=== PATIENT | female | born 2000 | race Caucasian/White ===

== ENCOUNTER 2020-07-27 10:30 | Emergency (ER) | payer SELFPAY ==
--- NOTE | 2020-07-27 10:33 | XR_ITS ---
WS: [id number] Exam: XR wrist LT min 3V* [id number] Date/Time of Exam: 07/27/2020 10:33 AM Reason For Exam: injury/pain There are no fractures, soft tissue swelling, or unusual calcifications. The wrist shows normal bony alignment. There is no irregularity of the bony architecture. XR/XR wrist LT min 3V* [id number] IMPRESSION: Negative left wrist.
--- NOTE | 2020-07-27 10:33 | W.ED.UPPEXIN ---
HPI - Extremity Injury (Upper) General: Chief Complaint: Extremity Injury, Upper Stated Complaint: L WRIST INJURY Time Seen by Provider: 07/27/20 10:33 Source: patient Mode of arrival: ambulatory Limitations: no limitations History of Present Illness: HPI narrative: Patient is a 19-year-old female who presents to ED today for evaluation of her left wrist pain. Patient tells me she accidentally struck her left wrist on the counter 2 days ago and has had pain since. MD complaint: injury to: left and wrist Onset (ago): day(s) Other Extremity Injury: Left: wrist Other injuries: none Place: home Relieving factors: immobilization Exacerbating factors: movement of extremity Context: direct blow Associated symptoms: Reports no associated symptoms Review of Systems Musc: Reports: joint pain (L wrist); Denies: extremity pain, extremity swelling or joint swelling Skin/Breast: Denies: changes in skin color Neuro: Denies: numbness in extremities or sensory changes Physical Exam Const: COMMON NORMALS: no acute distress, no limitations and alert GENERAL APPEARANCE: cooperative Extremity: GENERAL: Yes normal exam except as noted LEFT UPPER EXTREMITY: Yes wrist Left wrist: Yes inspection (normal), Yes palpation (TTP ulnar wrist ), Yes ROM (normal) and Yes neurovascular exam (normal) Neuro: COMMON NORMALS: moves all extremities, no focal motor deficits and no sensory deficits noted SENSORIUM/ORIENTATION: Yes alert Skin: COMMON NORMALS: no rashes or lesions noted GENERAL SKIN EXAM: no rashes or lesions noted TRAUMA: no lacerations or abrasions Course Vital Signs: Vital signs: Vital Signs Temperature 97.7 F 07/27/20 10:47 Pulse Rate 77 07/27/20 10:47 Respiratory Rate 16 07/27/20 10:47 Blood Pressure 128/79 07/27/20 10:47 Pulse Oximetry 97 07/27/20 10:47 MDM - Extremity Injury (Upper) Imaging Data^: XR L wrist: Radiologist's impression: [address] [address] XRay Report Signed Patient: Whitney COLON #: [id number] : 2000Acct#:[id number] Age/Sex: 19 / FADM Date: 07/27/20 Loc: ERRoom/Bed: Attending Dr: Ordering Provider/Ordering MD: Casandra Barnes Date of Service: 07/27/20 Procedure(s): XR wrist LT min 3V* [id number] Accession Number(s): [id number] Report Number: [id number] WS: [id number] Exam: XR wrist LT min 3V* [id number] Date/Time of Exam: 07/27/2020 10:33 AM Reason For Exam: injury/pain There are no fractures, soft tissue swelling, or unusual calcifications. The wrist shows normal bony alignment. There is no irregularity of the bony architecture. XR/XR wrist LT min 3V* [id number] IMPRESSION: Negative left wrist. Dictated By:Jim Virk DO Signed By:Nagi Ann Date/Time:07/27/20 1114 DD/ 1113 Discharge Plan Discharge Patient Disposition: Home Clinical Impression: Contusion of left wrist Qualifiers: Encounter type: initial encounter Qualified Code(s): S60.212A - Contusion of left wrist, initial encounter Condition: Stable Discharge Orders: Discharge ED (Routine); Ordered 07/27/20 Ordered By: Casandra Barnes Coding Level of Care Code ED Car Wash Attendant for Chg Fwd Exam Expanded Problem Focused
[2020-07-27 10:47] VITALS: BP 128/79; PULSE 77; RESP 16; TEMP 36.5; O2SAT 97; BMI 16.5
== END 2020-07-27 11:44 | disposition home or self-care (01) ==
PROVIDERS: Emergency Provider Physician Assistant
DX: S60.212A Contusion of left wrist, initial encounter (principal); W22.09XA Striking against other stationary object, initial encounter
CPT/HCPCS: 73110; 99283

== ENCOUNTER 2021-05-07 12:31 | Emergency (ER) | payer OTHER, MEDICAID, SELFPAY ==
--- NOTE | 2021-05-07 12:33 | XR_ITS ---
WS: [id number] WRIST RIGHT TECHNIQUE: 3 views of the right wrist CLINICAL INFORMATION: R wrist injury COMPARISON: None. FINDINGS: Normal radiocarpal joint. Scaphoid is normal in appearance. No evidence of radiocarpal dislocation. D istal radius and ulna are normal in appearance. Mild soft tissue edema dorsal wrist. XR/XR wrist RT min 3V* [id number] IMPRESSION: Mild soft tissue edema dorsal wrist. No acute fractures.
--- NOTE | 2021-05-07 13:17 | W.ED.UPPEXIN ---
HPI - Extremity Injury (Upper) General: Chief Complaint: Extremity Injury, Upper Stated Complaint: right wrist injury Time Seen by Provider: 05/07/21 12:51 Source: patient Mode of arrival: ambulatory Limitations: no limitations History of Present Illness: HPI narrative: 20-year-old female presents to the ER today for right wrist pain. Patient reports on [employer] she slipped on chicken grease and fell, landing on her right wrist. Patient reports since then she has had bruising, swelling, pain in the right wrist. She has been wearing a brace and lifting less than 1 pound at work. Patient was sent by her work for evaluation. MD complaint: injury to: right and wrist Onset (ago): week(s) Other Extremity Injury: Right: wrist Other injuries: none Place: work Severity: moderate Severity scale (1-10): 4 Context: fall Review of Systems General: Reports: 10 or more systems reviewed and unremarkable except in HPI and below PFSH ED PFSH: Medical History Rib pain on left side Social History Smoking and tobacco status: never smoked Physical Exam Const: COMMON NORMALS: no acute distress, average body habitus and patient oriented x3 GENERAL APPEARANCE: cooperative and comfortable Neck/C-Spine: COMMON NORMALS: full ROM and no lymphadenopathy Resp: COMMON NORMALS: normal respiratory effort EFFORT & INSPECTION: Yes able to speak in complete sentences Cardio: COMMON NORMALS: regular rate and regular rhythm RATE: regular rate RHYTHM: regular rhythm Back/Pelvis: COMMON NORMALS: thoraco-lumbar ROM normal Extremity: RIGHT UPPER EXTREMITY: Yes wrist Right wrist: Yes inspection (no swelling or bruising noted; no deformity), Yes palpation (TTP over distal radius), Yes ROM (normal ROM but with some pain) and Yes neurovascular exam (normal) Neuro: COMMON NORMALS: patient oriented x3, moves all extremities and gait normal Psych: COMMON NORMALS: mental status grossly normal, Normal thought process present and cooperative THOUGHT PROCESS: Normal thought process present Skin: COMMON NORMALS: no rashes or lesions noted GENERAL SKIN EXAM: no rashes or lesions noted Course ED course: Patient presents to the ER today for right wrist pain after fall at work. We will get imaging at this time. MDM - Extremity Injury (Upper) MDM Narrative: Medical decision making narrative: 20-year-old female presents to the ER today for right wrist pain that started after a fall at work on the . Patient reports swelling and bruising of the wrist. She is to wear a wrist brace which does seem to help some. Her work sent her to be evaluated given this happened at work. Imaging in the ER today is negative for acute fracture. There appears to be some mild soft tissue swelling consistent with a sprain or contusion. Discussed conservative treatment at this time including wearing the brace, rest, ibuprofen, ice. If pain persist beyond 10 to 14 days, follow-up with work comp doctor. Patient verbalized understanding and is in agreement with the treatment plan. Imaging Data^: Xray Ortho: Radiologist's impression: [facility] [address] XRay Report Signed Patient: JV COLON Unit #: [id number] : 2000 Age/Sex: 20 / F ADM Date: 05/07/21 Loc: ER Room/Bed: Attending Dr: Ordering Provider/Ordering MD: Lin Payne Date of Service: 05/07/21 Procedure(s): XR wrist RT min 3V* [id number] Accession Number(s): [id number] Report Number: [id number] WS: [id number] WRIST RIGHT TECHNIQUE: 3 views of the right wrist CLINICAL INFORMATION: R wrist injury COMPARISON: None. FINDINGS: Normal radiocarpal joint. Scaphoid is normal in appearance. No evidence of radiocarpal dislocation. Distal radius and ulna are normal in appearance. Mild soft tissue edema dorsal wrist. XR/XR wrist RT min 3V* [id number] IMPRESSION: Mild soft tissue edema dorsal wrist. No acute fractures. Dictated By: Reginaldo Yeh MD Signed By: Reginaldo Yeh MD Signed Date/Time: 05/07/21 1304 DD/ 1302 Critical Care Time Critical Care Time: Critical Care Time: No Discharge Plan Discharge Patient Disposition: Home Clinical Impression: Contusion of right wrist, initial encounter Condition: Stable Prescriptions: No Action meloxicam 7.5 mg tablet 7.5 mg PO DAILY Qty: 30 RF: 0 tramadol 50 mg tablet 50 mg PO Q8H PRN (Reason: left rib pain) Qty: 20 RF: 0 Discharge Orders: Discharge ED (Routine); Ordered 05/07/21 Ordered By: Lin Payne Discharge Diet: Usual diet Discharge Activity: Limit activity as instructed Patient Instructions: Opioid Safety Activity Restrictions/Additional Instructions: Continue wearing brace. Take ibuprofen for pain and swelling. Rest as discussed. Work restrictions as discussed. Follow-up with work comp doctor in 10 to 14 days if no improvement. Return to the ER with any new or worsening symptoms. Coding Level of Care Code ED Technology Professional for Chg Fwd Exam Comprehensive
[2021-05-07 13:51] VITALS: BMI 20.1
== END 2021-05-07 13:55 | disposition home or self-care (01) ==
PROVIDERS: Emergency Provider Physician Assistant
DX: S60.211A Contusion of right wrist, initial encounter (principal); W01.0XXA Fall on same level from slipping, tripping and stumbling without subsequent striking against object, initial encounter
CPT/HCPCS: 73110; 99282

== ENCOUNTER 2022-04-14 09:50 | Emergency (ER) | payer MEDICAID, SELFPAY ==
[2022-04-14 10:00] VITALS: BP 110/59; PULSE 74; RESP 13; TEMP 36.9; O2SAT 97; BMI 16.2
--- NOTE | 2022-04-14 10:53 | ED_ITS ---
HPI - URI/Sore Throat General: Chief Complaint: General Medical Stated Complaint: congestion Time Seen by Provider: 04/14/22 10:01 Source: patient Mode of arrival: ambulatory Limitations: no limitations History of Present Illness: Patient is a 21-year-old female presents to ED today with a complaint of sinus pain/pressure, nasal congestion, sore throat, and cough over the past 4 days. No fevers. No sick contacts. Patient has been treating with OTC cough and cold medications. She is not having any chest pain, shortness of breath, difficulty breathing. No hemoptysis. She is eating and drinking normally. No neck pain/stiffness. MD elicited complaint: cough, sore throat, nasal congestion and sinus pain Onset (ago): day(s) (4 days ago) Consistency: constant Severity: mild Able to tolerate fluids by mouth: Yes Associated symptoms: Reports nasal congestion and sinus pain; Deny abdominal pain, chills, chest pain, diarrhea, ear or mastoid pain, fever(s), headache(s) or vomiting Treatments prior to arrival: cold medicine Review of Systems Const: Denies: fever(s), chills, body aches, fatigue or malaise Eyes: Denies: change in vision, blurry vision or photophobia ENMT: Reports: throat pain, odynophagia, nasal discharge, nasal congestion and sinus pain; Denies: oral sores or ear or mastoid pain Card: Denies: chest pain Resp: Reports: non-productive cough; Denies: dyspnea, wheezing or hemoptysis GI: Denies: abdominal pain, vomiting or diarrhea Musc: Denies: neck pain, back pain, extremity pain or joint pain Skin/Breast: Denies: rash Neuro: Denies: headache(s) [facility] ED PFSH: Medical History Rib pain on left side Social History Smoking and tobacco status: never smoked Physical Exam Const: COMMON NORMALS: no acute distress, average body habitus, patient oriented x3, no limitations, healthy appearing, alert and well nourished GENERAL APPEARANCE: cooperative ORIENTATION/CONSCIOUSNESS: Yes awake, Yes oriented to person, Yes oriented to place and Yes oriented to time HENMT: COMMON NORMALS: normocephalic, atraumatic, hearing grossly normal bilaterally, external ears normal, EAC's normal, TM's normal bilaterally and Normal external nose present HEAD & SCALP: normal to inspection, normocephalic and atraumatic FACE & SINUS: sinus tenderness frontal and maxillary NOSE: Normal external nose present EXTERNAL EAR: Yes external ears normal EXTERNAL AUDITORY CANAL: EAC's normal TYMPANIC MEMBRANE: TM's normal bilaterally MOUTH: Normal oral and palatal mucosa present, lip normal and tongue normal TEETH & GINGIVA: Yes poor dentition THROAT: tonsils normal, uvula midline and posterior oropharynx abnormal erythema Eye: GENERAL EYE: appearance normal, both eyes and all related structures Neck/C-Spine: COMMON NORMALS: full ROM, no lymphadenopathy and no meningeal signs GENERAL: Yes normal visual inspection Resp: COMMON NORMALS: normal respiratory effort and clear to auscultation bilaterally AUSCULTATION: clear to auscultation bilaterally Cardio: COMMON NORMALS: regular rate and regular rhythm RATE: regular rate RHYTHM: regular rhythm Neuro: COMMON NORMALS: patient oriented x3 and CN's II-XII intact bilaterally SENSORIUM/ORIENTATION: Yes alert, Yes oriented to person, Yes oriented to place and Yes oriented to time MENINGEAL SIGNS: Yes no meningeal signs Skin: COMMON NORMALS: no rashes or lesions noted GENERAL SKIN EXAM: no rashes or lesions noted Course Vital Signs: Vital signs: Vital Signs Temperature 98.4 F 04/14/22 10:00 Pulse Rate 74 04/14/22 10:00 Respiratory Rate 13 04/14/22 10:00 Blood Pressure 110/59 04/14/22 10:00 Pulse Oximetry 97 04/14/22 10:00 Oxygen Delivery Nv thod 04/14/22 10:00 MDM - URI/Sore Throat Medical Decision Making Symptoms most likely are viral in nature and discussed symptomatic treatment for this at home. There is no indication at this point for antibiotics or steroids. She can follow-up with PCP in 1 to 2 weeks if symptoms do not seem to be improving. Return to ED precautions given. Discharge Plan Discharge Patient Disposition: Home Clinical Impression: Viral URI with cough Condition: Stable Prescriptions: No Action meloxicam 7.5 mg tablet 7.5 mg PO DAILY Qty: 30 0RF tramadol 50 mg tablet 50 mg PO Q8H PRN (Reason: left rib pain) Qty: 20 0RF Discharge Orders: Discharge ED (Routine); Ordered 04/14/22 Ordered By: Casandra Barnes Patient Instructions: Upper Respiratory Infection (DC) Activity Restrictions/Additional Instructions: As we discussed symptoms are most likely related to viral infection and treatment is geared toward symptomatic relief. You may try cool mist humidifiers, essential oils, chest rubs, steam showers, OTC cough/cold medications, throat lozenges, etc. Please follow-up with your primary care provider in 1 to 2 weeks if symptoms persist. Coding Level of Care Code ED Maintenance Service Technician for Wanda Lawton
== END 2022-04-14 11:07 | disposition home or self-care (01) ==
PROVIDERS: Emergency Provider Physician Assistant
DX: J06.9 Acute upper respiratory infection, unspecified (principal)
CPT/HCPCS: 99283

== ENCOUNTER 2022-06-22 18:04 | Emergency (ER) | payer MEDICAID, SELFPAY ==
[2022-06-22 18:09] VITALS: BP 128/84; PULSE 67; TEMP 36.9; O2SAT 97; BMI 18.1
--- NOTE | 2022-06-22 18:16 | W.ED.GENADLT ---
HPI - General Adult General: Chief complaint: General Medical Stated complaint: Left Arm Numb\Rib Pain Time Seen by Provider: 06/22/22 18:14 History of Present Illness: Ms Garza is a 21-year-old female without significant past medical history presenting to the emergency department for left rib and arm pain. Reports onset of symptoms without known specific provoking event approximately 20 minutes prior to arrival. Sharp infra-axillary pain with a numbness sensation down her entire arm. Worse with inspiration. Moderate to severe in intensity. No other specific changes in health, exacerbating, or alleviating factors identified. Onset (ago): minute(s) Location: chest, left and upper extremity Radiation: extremity Severity: moderate Quality: sharp Relieving factors: none Exacerbating factors: movement Review of Systems General: Reports: 10 or more systems reviewed and unremarkable except in HPI and below PFSH ED PFSH: Medical History Rib pain on left side Social History Smoking and tobacco status: never smoked Physical Exam Const: COMMON NORMALS: alert GENERAL APPEARANCE: cooperative and well developed HENMT: COMMON NORMALS: normocephalic and atraumatic HEAD & SCALP: normocephalic and atraumatic Eye: COMMON NORMALS: conjunctivae normal CONJUNCTIVA: Yes conjunctivae normal SCLERA: sclerae normal Neck/C-Spine: COMMON NORMALS: supple GENERAL: Yes trachea midline Chest: OTHER: Tenderness palpation of left lateral ribs. Overlying skin changes, crepitus, deformity. Resp: COMMON NORMALS: clear to auscultation bilaterally EFFORT & INSPECTION: Yes able to speak in complete sentences AUSCULTATION: clear to auscultation bilaterally Cardio: COMMON NORMALS: regular rate and regular rhythm RATE: regular rate RHYTHM: regular rhythm GI: COMMON NORMALS: Soft to palpation PALPATION: Yes Soft to palpation and No Tenderness to palpation present (GI) Extremity: GENERAL: Yes normal exam except as noted and No edema Neuro: COMMON NORMALS: moves all extremities SENSORIUM/ORIENTATION: Yes alert and No Orientation impaired Psych: COMMON NORMALS: mental status grossly normal and Normal thought process present THOUGHT PROCESS: Normal thought process present Course Vital Signs: Vital signs: Vital Signs Temperature 98.4 F 06/22/22 18:09 Pulse Rate 68 06/22/22 19:40 Respiratory Rate 14 06/22/22 18:26 Blood Pressure 121/71 06/22/22 19:40 Pulse Oximetry 99 06/22/22 19:40 Oxygen Delivery Me thod 06/22/22 18:26 MDM - General Adult Medical Decision Making 21-year-old female presenting with left rib and arm pain. EKG notable for sinus rhythm, normal axis and intervals, no STEMI. X-rays negative for acute pathology. Wells/Perc negative, reproducible to palpation. Patient significantly improved with Toradol, Tylenol, Robaxin with patient complete resolution of symptoms. Most likely cause of pain is musculoskeletal nature, possibly related to nerve irritation given radiation down the arm. The results of ED evaluation were discussed with the patient including prescriptions and/or symptomatic cares (if applicable) including appropriate and responsible use, followup plan, and return precautions. The patient verbalized understanding and felt safe for discharge. Medical Records I reviewed the patient's medical records. Lab Data I reviewed the patient's lab results. Radiology Impressions Ribs X-Ray 06/22/22 18:26 IMPRESSION: Negative chest and left rib series. Discharge Plan Discharge Patient Disposition: Home Clinical Impression: Rib pain on left side, Arm paresthesia, left Condition: Stable Prescriptions: New methocarbamol 750 mg tablet 750 mg PO Q8H PRN (Reason: arm pain) Qty: 20 0RF No Action meloxicam 7.5 mg tablet 7.5 mg PO DAILY Qty: 30 0RF tramadol 50 mg tablet 50 mg PO Q8H PRN (Reason: left rib pain) Qty: 20 0RF Discharge Orders: Discharge ED (Routine); Ordered 06/22/22 Ordered By: Marcos Coppola Patient Instructions: Cervical Radiculopathy (ED) Activity Restrictions/Additional Instructions: Thank you for visiting the emergency department. You were seen and evaluated for rib and arm symptoms. The exact cause of your symptoms is unclear though likely related to nerve irritation and musculoskeletal pain. I would expect resolution of symptoms in the next few days. You may use [id number] medications such as acetaminophen and ibuprofen for pain however please do not exceed the daily recommended dosage as listed on the packaging and please keep in mind that many namebrand medications contain the same active ingredients. Please avoid these medications if previously instructed to do so by another physician due to other underlying medical condition. I will also prescribe a muscle relaxer. Heat and ice can also be used. Do not place ice directly on skin and use a 1:2 ratio of on time to off time, for example if you apply ice for 15 minutes then remove it for at least 30 minutes before reapplying. Please follow-up with your primary care provider. Return to the emergency department for anything that you are concerned about and feel needs emergency department evaluation. Coding Level of Care Code ED Tester Compressed Gases for Wanda Lawton
--- NOTE | 2022-06-22 18:18 | ECG_ITS ---
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 Measurements Intervals Gilbert Rate: 70 P: 75 CA: 140 QRS: 16 QRSD: 88 T: 38 QT: 350 QTc: 378 Interpretive Statements SINUS RHYTHM POSSIBLE RIGHT VENTRICULAR CONDUCTION DELAY [RSR (QR) IN V1/V2] NONSPECIFIC T-WAVE ABNORMALITY No previous ECG available for comparison Electronically Signed On 06-22-2022 21:01:44 PET CARE TECHNICIAN by Nani العلي M.D. [id number]
[2022-06-22 18:26] VITALS: PULSE 73; RESP 14; O2SAT 98
--- NOTE | 2022-06-22 18:26 | XRR_ITS ---
PROCEDURE INFORMATION: Exam: XR Left Ribs with PA Chest Exam date and time: 06/22/2022 6:34 PM Age: 21 years old Clinical indication: Chest wall pain; Left; Additional info: Infra axillary pain, non traumatic, radiation down arm TECHNIQUE: Imaging protocol: Radiologic exam of the Left ribs with PA chest. Views: 3 views COMPARISON: No relevant prior studies available. FINDINGS: Lungs: Unremarkable. No consolidation. Pleural spaces: Unremarkable. No pleural effusion. No pneumothorax. Heart/Mediastinum: Unremarkable. No cardiomegaly. Bones/joints: No displaced rib fractures detected. XR/XR ribs LT mn 3V w CXR1V [id number] IMPRESSION: Negative chest and left rib series.
[2022-06-22] MEDS: ketorolac 30 mg/mL INJ 15 MG IM (18:34)
[2022-06-22] MEDS: acetaminophen 500 mg Tablet 1000 MG PO (18:34)
[2022-06-22] MEDS: methocarbamol 750 mg Tablet PO (18:34)
[2022-06-22 19:40] VITALS: BP 121/71; PULSE 68; O2SAT 99
== END 2022-06-22 19:44 | disposition home or self-care (01) ==
PROVIDERS: Emergency Provider Emergency Medicine
DX: R07.81 Pleurodynia (principal); R20.2 Paresthesia of skin
CPT/HCPCS: 71101; 93005; 96372; 99284; J1885

== ENCOUNTER 2022-07-10 17:18 | Emergency (ER) | payer MEDICAID, SELFPAY ==
[2022-07-10 17:43] VITALS: BP 123/85; PULSE 99; RESP 14; TEMP 36.7; O2SAT 95; BMI 17.9
[2022-07-10 18:36] LABS: HCG Qualitative Urine. Negative (Negative)
[2022-07-10 19:13] LABS: Add Urine Microscopic? NO; Charge for UA Resulting for Rev
[2022-07-10 19:18] LABS: Bilirubin Urine Neg (Negative); Blood Urine Neg (Negative); Glucose Urine UA Norm (Normal); Ketones Urine Negative (Negative); Leukocyte Esterase Urine Negative (Negative); Nitrate Urine Negative (Negative); Protein Urine Neg (Negative); Specific Gravity, Urine 1.005 (1.005-1.030); Urine Appearance Clear (CLEAR); Urine Color Yellow (Yellow); Urobilinogen Urine Neg (Negative); pH Urine 5 (5-7)
--- NOTE | 2022-07-10 20:48 | CTR_ITS ---
PROCEDURE INFORMATION: Exam: CT Abdomen And Pelvis Without Contrast Exam date and time: 07/10/2022 9:07 PM Age: 21 years old Clinical indication: Abdominal pain; Flank; Left; Additional info: Left flank pain, dysuria, hematuria TECHNIQUE: Imaging protocol: Computed tomography of the abdomen and pelvis without contrast. Axial, coronal and sagittal reformatted images were created and reviewed. Radiation optimization: All CT scans at this facility use at least one of these dose optimization techniques: automated exposure control; mA and/or kV adjustment per patient size (includes targeted exams where dose is matched to clinical indication); or iterative reconstruction. REPORTING DATA: Count of CT and Cardiac NM exams in prior 12 months: This patient has received 0 known CTs and 0 known cardiac nuclear medicine studies in the 12 months prior to the current study. COMPARISON: CR (CHEST, ) 06/22/2022 6:34 PM RADIATION DOSE METRICS: Total DLP (mGy-cm): 301.17 FINDINGS: Liver: Unremarkable. Gallbladder and bile ducts: No radiodense gallstones. No biliary ductal dilatation. Pancreas: Unremarkable. Spleen: Unremarkable. Adrenal glands: Normal. No mass. Kidneys and ureters: No mass. No radiodense calculi. No hydronephrosis. Stomach and bowel: No bowel wall thickening. No obstruction. No pneumatosis. Appendix: Normal. Intraperitoneal space: Trace nonspecific free pelvic fluid, likely physiologic. No organized fluid collection. No free air. Vasculature: Unremarkable. No aneurysm. Lymph nodes: No pathologically enlarged lymph nodes. Urinary bladder: Unremarkable as visualized. Reproductive: Unremarkable. Bones/joints: No acute osseous abnormality. Soft tissues: Unremarkable. CT/CT kidney stone [id number] IMPRESSION: 1. Limited noncontrast examination without CT evidence of acute intra-abdominal or pelvic pathology. 2. Additional findings, as above.
--- NOTE | 2022-07-10 20:50 | W.ED.FEMALGU ---
HPI - Female Genitourinary General: Chief complaint: Urogenital-Female Stated complaint: urinary pain/left side pain Time Seen by Provider: 07/10/22 20:41 History of Present Illness: Patient is a 21-year-old female who comes to the ED with urinary complaint. Patient states that since yesterday she has been having left flank and left sided abdominal pain, dysuria and hematuria. She rates the pain currently a 7 out of 10. Endorses having nausea and has had 2 episodes of emesis today. Denies any fevers bowel symptoms. Patient did state that she just started her menstrual period today. Associated symptoms: Reports nausea; Deny abdominal pain or headache(s) Review of Systems Const: Denies: fever(s), chills or fatigue Eyes: Denies: change in vision or eye discomfort ENMT: Denies: throat pain, odynophagia, nasal discharge or nasal congestion Card: Denies: chest pain, palpitations, edema, swelling of feet/ankles, dyspnea on exertion or orthopnea Resp: Denies: dyspnea, productive cough or non-productive cough GI: Reports: nausea and vomiting; Denies: abdominal pain, diarrhea, constipation or hematochezia : Reports: flank pain, dysuria and hematuria Musc: Denies: neck pain, back pain or extremity swelling Skin/Breast: Denies: rash or new lesions Neuro: Denies: headache(s), numbness in extremities or weakness in extremities PFS ED PFSH: Medical History No pertinent family history Rib pain on left side Surgical History No pertinent past surgical history Social History Smoking and tobacco status: never smoked Physical Exam Const: COMMON NORMALS: patient oriented x3 and alert GENERAL APPEARANCE: cooperative HENMT: COMMON NORMALS: normocephalic HEAD & SCALP: normocephalic MOUTH: Normal oral and palatal mucosa present THROAT: posterior oropharynx normal and uvula midline Neck/C-Spine: COMMON NORMALS: supple GENERAL: Yes normal visual inspection Resp: COMMON NORMALS: normal respiratory effort, No retractions, No use of accessory muscles and clear to auscultation bilaterally AUSCULTATION: clear to auscultation bilaterally Cardio: COMMON NORMALS: regular rate, regular rhythm, S1 normal heart sound present, S2 normal heart sound present, No gallops present (Cardio), No clicks present (Cardio), No murmurs present (Cardio) and Peripheral pulses 2+ throughout RATE: regular rate RHYTHM: regular rhythm HEART SOUNDS: S1 normal heart sound present and S2 normal heart sound present PERIPHERAL PULSES: Peripheral pulses 2+ throughout GI: COMMON NORMALS: Normal to inspection, nondistended, normoactive bowel sounds present, Soft to palpation and no masses PALPATION: Yes Soft to palpation and Yes Tenderness to palpation present (GI) (Generalized left-sided abdominal tenderness) Details: LLQ and LUQ : BLADDER/KIDNEY EXAM: Yes CVA tenderness on the left Back/Pelvis: GENERAL BACK: Yes CVA tenderness Extremity: COMMON NORMALS: normal to inspection Neuro: COMMON NORMALS: patient oriented x3 SENSORIUM/ORIENTATION: Yes alert GAIT: Yes Normal gait present Skin: GENERAL SKIN EXAM: dry skin Course Vital Signs: Vital signs: Vital Signs Temperature 98.1 F 07/10/22 17:43 Pulse Rate 76 07/10/22 22:43 Respiratory Rate 16 07/10/22 22:43 Blood Pressure 111/64 07/10/22 22:43 Pulse Oximetry 97 07/10/22 22:43 Oxygen Delivery Me thod 07/10/22 17:43 [facility] - Female Medical Decision Making Patient is a 21-year-old female who comes to the ED with urinary complaint. Patient states that since yesterday she has been having left flank and left sided abdominal pain, dysuria and hematuria. She rates the pain currently a 7 out of 10. Endorses having nausea and has had 2 episodes of emesis today. Denies any fevers bowel symptoms. Patient did state that she just started her menstrual period today. Vitals are stable. Patient appears nontoxic and in no acute distress or pain. She has some left CVA tenderness along with generalized left-sided abdominal tenderness. Rest of exam is benign. Labs are unremarkable. UA is clear. hCG negative. CT of abdomen and pelvis showed no acute findings and no kidney stone noted. Patient was given a dose of Toradol, Zofran and IV fluids here in the ED. She was diagnosed with left flank pain and was stable for discharge home. Patient sent home with a prescription for ibuprofen and Zofran. Told to follow-up with PCP in the next week for reevaluation. Return to ED precautions given. Patient understood and agreed with plan. Lab Data I reviewed the patient's lab results. 07/10/22 20:55 07/10/22 20:55 Radiology Impressions Abdomen/Pelvis CT 07/10/22 20:48 IMPRESSION: 1. Limited noncontrast examination without CT evidence of acute intra-abdominal or pelvic pathology. 2. Additional findings, as above. Laboratory Results WBC 7.9 10^3/uL (4.0-10.0) 07/10/22 20:55 RBC 5.36 10^6/uL (4.1-5.3) H 07/10/22 20:55 Hgb 15.8 g/dL (11.5-15.3) H 07/10/22 20:55 Hct 48.0 % (37.0-47.0) H 07/10/22 20:55 MCV 89.6 fl (81-99) 07/10/22 20:55 MCH 29.5 pg (28.0-34.0) 07/10/22 20:55 MCHC 32.9 g/dL (30.0-36.0) 07/10/22 20:55 RDW 12.2 % (12.1-15.1) 07/10/22 20:55 Plt Count 303 10^3/cmm (130-400) 07/10/22 20:55 MPV 11.2 fL (7.4-10.4) H 07/10/22 20:55 Neut % (Auto) 66.8 % 07/10/22 20:55 Lymph % (Auto) 24.1 % 07/10/22 20:55 [place] % (Auto) 6.7 % 07/10/22 20:55 Eos % (Auto) 1.6 % 07/10/22 20:55 Baso % (Auto) 0.5 % 07/10/22 20:55 Neut # (Auto) 5.28 10^3/uL (1.8-7.7) 07/10/22 20:55 Lymph # (Auto) 1.9 10^3/uL (0.8-4.8) 07/10/22 20:55 [place] # (Auto) 0.5 10^3/uL (0.2-0.9) 07/10/22 20:55 Eos # (Auto) 0.1 10^3/uL (0.0-0.8) 07/10/22 20:55 Baso # (Auto) 0.0 10^3/uL (0.0-0.1) 07/10/22 20:55 Nucleated RBC % (auto) 0 % 07/10/22 20: Nucleated RBCs # 0.0 /100WBC 07/10/22 20:55 Sodium 139 mmol/L (136-145) 07/10/22 20:55 Potassium 3.9 mmol/L (3.5-5.1) 07/10/22 20:55 Chloride 100 mmol/L (98-107) 07/10/22 20:55 Carbon Dioxide 26 mmol/L (22-29) 07/10/22 20:55 Anion Gap 16.9 (5-19) 07/10/22 20:55 BUN 6 mg/dL (6-20) 07/10/22 20:55 Creatinine 0.7 mg/dL (0.5-0.9) 07/10/22 20:55 GFR Calculation 105.6 mL/min (90-130) 07/10/22 20:55 Glucose 105 mg/dL (65-115) 07/10/22 20:55 Calculated Osmolality 286 mOsm/kg (285-295) 07/10/22 20:55 Calcium 9.7 mg/dL (8.5-10.5) 07/10/22 20:55 Total Bilirubin 0.6 mg/dL (0.15-1.2) 07/10/22 20:55 AST 22 U/L (0-32) 07/10/22 20:55 ALT 10 U/L (0-33) 07/10/22 20:55 Alkaline Phosphatase 64 U/L (35-105) 07/10/22 20:55 Total Protein 7.8 g/dL (6.6-8.7) 07/10/22 20:55 Albumin 5.2 g/dL (3.5-5.2) 07/10/22 20:55 Globulin 2.6 g/dL (1.3-4.6) 07/10/22 20:55 HCG, Qual Negative (Negative) 07/10/22 18:28 Urine Color Yellow (Yellow) 07/10/22 18:28 Urine Appearance Clear (CLEAR) 07/10/22 18:28 Urine pH 5 (5-7) 07/10/22 18:28 Ur Specific [place] 1.005 (1.005-1.030) 07/10/22 18:28 Urine Protein Neg (Negative) 07/10/22 18:28 Urine Glucose (UA) Norm (Normal) 07/10/22 18:28 Urine Ketones Negative (Negative) 07/10/22 18:28 Urine Blood Neg (Negative) 07/10/22 18:28 Urine Nitrate Negative (Negative) 07/10/22 18:28 Urine Bilirubin Neg (Negative) 07/10/22 18:28 Urine Urobilinogen Neg mg/dL (Negative) 07/10/22 18:28 Ur Leukocyte Esterase Negative (Negative) 07/10/22 18:28 Discharge Plan Discharge Patient Disposition: Home Clinical Impression: Left flank pain Condition: Stable Prescriptions: New ibuprofen 600 mg tablet 600 mg PO Q8H PRN (Reason: pain) Qty: 20 0RF ondansetron 4 mg tablet,disintegrating 4 mg PO Q8H PRN (Reason: nausea and vomiting) Qty: 15 0RF No Action meloxicam 7.5 mg tablet 7.5 mg PO DAILY Qty: 30 0RF tramadol 50 mg tablet 50 mg PO Q8H PRN (Reason: left rib pain) Qty: 20 0RF methocarbamol 750 mg tablet 750 mg PO Q8H PRN (Reason: arm pain) Qty: 20 0RF Discharge Orders: Discharge ED (Routine); Ordered 07/10/22 Ordered By: Christofer Fatima Discharge Diet: Regular Discharge Activity: Increase activity as tolerated Patient Instructions: Flank Pain (ED) Activity Restrictions/Additional Instructions: Follow-up with medical provider as directed in the next 5 to 7 days for reevaluation. Take medications as prescribed. Return to the ER or your medical provider if condition worsens. Please read and understand discharge instructions. Thank you for choosing [facility] for your healthcare needs today. Please realize this is an emergency room and that we are providing you with a medical screening exam and this may not be complete and all inclusive of all the testing and or work up that you may need to determine your ailment or severity of your illness. It is very important that you follow up as instructed or that you return to the Emergency Department should you have concerns or if your condition changes or worsens in any way. Stand Alone Forms: Work/School Release Coding Level of Care Code ED Leadership Development Instructor for Wanda Lawton
[2022-07-10] MEDS: sodium chloride 0.9% 500 ML 999 ML IV (20:57)
[2022-07-10] MEDS: ondansetron 2 mg/ML SDV 2 mL 4 MG IVP (20:58)
[2022-07-10 21:05] LABS: Basophils % 0.5 %; Eosinophils # 0.1 10^3/uL (0.0-0.8); Eosinophils % 1.6 %; Hemoglobin 15.8 g/dL (11.5-15.3); Lymphocytes # 1.9 10^3/uL (0.8-4.8); Lymphocytes % 24.1 %; Mean Corpuscular HGB Conc 32.9 g/dL (30.0-36.0); Mean Corpuscular Hemoglobin 29.5 pg (28.0-34.0); Mean Corpuscular Volume 89.6 fl (81-99); Mean Platelet Volume 11.2 fL (7.4-10.4); Monocytes # 0.5 10^3/uL (0.2-0.9); Monocytes % 6.7 %; Neutrophils # 5.28 10^3/uL (1.8-7.7); Neutrophils % 66.8 %; Nucleated Red Blood Cells % 0 %; Platelet Count 303 10^3/cmm (130-400); Red Blood Count 5.36 10^6/uL (4.1-5.3); Red Cell Distribution Width 12.2 % (12.1-15.1); White Blood Count 7.9 10^3/uL (4.0-10.0)
[2022-07-10 21:23] LABS: Alanine Aminotransferase 10 U/L (0-33); Albumin Level 5.2 g/dL (3.5-5.2); Alkaline Phosphatase 64 U/L (35-105); Anion Gap 16.9 (5-19); Aspartate Amino Transferase 22 U/L (0-32); Blood Urea Nitrogen 6 mg/dL (6-20); Calcium 9.7 mg/dL (8.5-10.5); Carbon Dioxide 26 mmol/L (22-29); Chloride 100 mmol/L (98-107); Globulin 2.6 g/dL (1.3-4.6); Glomerular Filtration Rate 105.6 mL/min (90-130); Glucose 105 mg/dL (65-115); Osmolality Calculated 286 mOsm/kg (285-295); Potassium 3.9 mmol/L (3.5-5.1); Sodium 139 mmol/L (136-145); Total Bilirubin 0.6 mg/dL (0.15-1.2); Total Protein 7.8 g/dL (6.6-8.7)
[2022-07-10] MEDS: ketorolac 30 mg/mL INJ IVP (22:13)
[2022-07-10 22:43] VITALS: BP 111/64; PULSE 76; RESP 16; O2SAT 97
--- NOTE | 2022-07-18 16:21 | DCPLANNER ---
03.11.23 - patient called due to no primary care physician - patient declines at this time.
== END 2022-07-10 22:43 | disposition home or self-care (01) ==
PROVIDERS: Emergency Medicine; Emergency Provider Physician Assistant
DX: R10.9 Unspecified abdominal pain (principal)
CPT/HCPCS: 74176; 80053; 81003; 81025; 85025; 96361; 96374; 96375; 99285; J1885; J2405; J7040

== ENCOUNTER → 2022-12-13 12:03 | Outpatient (BNVA) | payer MEDICAID, SELFPAY | PROVIDERS: Visit Provider Registered Nurse Neonatal Intensive Care | DX: M25.511 Pain in right shoulder (principal) | CPT/HCPCS: 73030 ==

== ENCOUNTER → 2023-01-18 14:20 | Outpatient (BNVA) | payer MEDICAID, SELFPAY | PROVIDERS: Referring Provider Family Medicine; Visit Provider Nurse Practitioner Family | DX: M25.511 Pain in right shoulder (principal); M89.8X1 Other specified disorders of bone, shoulder | CPT/HCPCS: 73030 ==

== ENCOUNTER 2023-02-07 14:36 | Emergency (ER) | payer MEDICAID, SELFPAY ==
[2023-02-07 14:37] VITALS: BP 132/80; PULSE 61; RESP 17; O2SAT 100; BMI 16.5
[2023-02-07 14:51] VITALS: BP 113/75; PULSE 63; RESP 18; O2SAT 97
--- NOTE | 2023-02-07 14:51 | ECG_ITS ---
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 Measurements Intervals [place] Rate: 59 P: 65 VA: 145 QRS: 34 QRSD: 85 T: 57 QT: 376 QTc: 374 Interpretive Statements SINUS BRADYCARDIA POSSIBLE RIGHT VENTRICULAR CONDUCTION DELAY [RSR (QR) IN V1/V2] Compared to ECG 06/22/2022 18:18:03 Sinus rhythm no longer present T-wave abnormality no longer present Electronically Signed On 02-07-2023 17:16:54 CDT by Nani العلي M.D. [id number] f
--- NOTE | 2023-02-07 14:57 | XRR_ITS ---
PROCEDURE INFORMATION: Exam: XR Chest Exam date and time: 02/07/2023 2:59 PM Age: 22 years old Clinical indication: Chest wall pain and left-sided; Patient HX: Left lower rib pain; No known injury; ; Additional info: L lower rib pain TECHNIQUE: Imaging protocol: Radiologic exam of the chest. Views: 1 view. COMPARISON: CR XR ribs LT mn 3V w CXR1V [id number] 06/22/2022 6:34 PM FINDINGS: Lungs: Unremarkable. No consolidation. Pleural spaces: Unremarkable. No pleural effusion. No pneumothorax. Heart/Mediastinum: Unremarkable. No cardiomegaly. Bones/joints: No evidence of rib fracture. XR/XR chest 1V portable [id number] IMPRESSION: No acute findings.
--- NOTE | 2023-02-07 14:57 | ED_ITS ---
HPI - Chest Pain General: Chief Complaint: Chest Pain Stated Complaint: sob Time Seen by Provider: 02/07/23 14:39 Source: patient Mode of arrival: ambulatory Limitations: no limitations History of Present Illness: Patient is a 22-year-old female presents to ED today with complaint of left lower anterior chest pain. She states symptoms started earlier today while she was carrying something heavy. She feels like she may have pulled something in her chest. She feels like pain is worse with movement, coughing, and deep inhalation. Denies SOB at rest. No abdominal pain, N/V. MD complaint: chest pain (rib pain) Onset (ago): hour(s) Timing of current episode: constant Prior episodes: No Onset: during exertion (carrying something heavy) Pain location: left chest Pain radiation: none Severity: moderate Quality: sharp Relieving factors: rest Exacerbating factors: inspiration, palpation and movement Associated symptoms: Deny abdominal pain, dyspnea, fever(s), nausea or vomiting Treatment prior to arrival: none Risk Factors: Coronary artery disease risk factors: none Thoracic aortic dissection risk factors: none Related Data: On Oral Contraceptives: No Review of Systems Const: Denies: fever(s), chills, body aches, fatigue or malaise Card: Reports: chest pain (L lower rib pain) Resp: Reports: pain on inspiration; Denies: dyspnea, productive cough, non-productive cough, wheezing, stridor, hemoptysis or chest congestion GI: Denies: abdominal pain, nausea, vomiting or diarrhea : Denies: flank pain, dysuria or hematuria Musc: Denies: back pain Neuro: Denies: dizziness PFSH ED PFSH: Medical History No pertinent family history Rib pain on left side Surgical History No pertinent past surgical history Social History Smoking and tobacco status: never smoked Physical Exam Const: COMMON NORMALS: no acute distress, patient oriented x3, no limitations and alert GENERAL APPEARANCE: cooperative NUTRITIONAL APPEARANCE: thin ORIENTATION/CONSCIOUSNESS: Yes awake, Yes oriented to person, Yes oriented to place and Yes oriented to time HENMT: COMMON NORMALS: normocephalic and atraumatic HEAD & SCALP: normal to inspection, normocephalic and atraumatic Neck/C-Spine: COMMON NORMALS: supple GENERAL: Yes normal visual inspection Chest: COMMONS NORMALS: normal inspection of the chest OTHER: TTP L lower anterior ribs; no crepitus; normal lung sounds; no LUQ abdominal pain, no left CVA tenderness Resp: COMMON NORMALS: normal respiratory effort and clear to auscultation bilaterally AUSCULTATION: clear to auscultation bilaterally Cardio: COMMON NORMALS: regular rate and regular rhythm RATE: regular rate RHYTHM: regular rhythm GI: COMMON NORMALS: Normal to inspection, nondistended, normoactive bowel sounds present, Soft to palpation, non-tender, No hepatosplenomegaly present and no masses PALPATION: Yes Soft to palpation and Yes No hepatosplenomegaly present : COMMON NORMALS: Yes no CVA tenderness BLADDER/KIDNEY EXAM: Yes no CVA tenderness Back/Pelvis: COMMON NORMALS: no CVA tenderness Neuro: COMMON NORMALS: patient oriented x3 SENSORIUM/ORIENTATION: Yes alert, Yes oriented to person, Yes oriented to place and Yes oriented to time Course Vital Signs: Vital signs: Vital Signs Pulse Rate 63 02/07/23 15:35 Respiratory Rate 18 02/07/23 15:35 Blood Pressure 113/75 02/07/23 15:35 Pulse Oximetry 97 02/07/23 15:35 Oxygen Delivery Me thod Room Air 02/07/23 14:51 MDM - Chest Pain Medical Decision Making XR negative. TTP left anterior lower ribs. She has no abdominal/flank pain. Recommend NSAIDS, ice/heat, follow up with primary care in one week if symptoms persist. Return to ED precautions given. Lab Data Radiology Impressions Chest X-Ray 02/07/23 14:57 IMPRESSION: No acute findings. All radiology interpretation(s) finalized by discharge Discharge Plan Discharge Patient Disposition: Home Clinical Impression: Strain of chest wall Qualifiers: Encounter type: initial encounter Qualified Code(s): S29.011A - Strain of muscle and tendon of front wall of thorax, initial encounter Condition: Stable Prescriptions: No Action No Known Home Medications Discharge Orders: Discharge ED (Routine); Ordered 02/07/23 Ordered By: Casandra Barnes Referrals: Glenys Rosales DO [Primary Care Provider] - Coding Level of Care Code ED [employer] Technician for Chg Jered
[2023-02-07 15:35] VITALS: BP 113/75; PULSE 63; RESP 18; O2SAT 97
== END 2023-02-07 15:46 | disposition home or self-care (01) ==
PROVIDERS: Emergency Provider Physician Assistant; PCP Family Medicine
DX: S29.011A Strain of muscle and tendon of front wall of thorax, initial encounter (principal); X50.0XXA Overexertion from strenuous movement or load, initial encounter
CPT/HCPCS: 71045; 93005; 99284

== ENCOUNTER 2023-02-28 15:54 | Outpatient (CLI) | payer MEDICAID, SELFPAY ==
--- NOTE | 2023-02-28 16:00 | MR_ITS ---
WS: [id number] MRI RIGHT SHOULDER NONCONTRAST TECHNIQUE: Sagittal T2, coronal T1, T2 and proton density imaging. Axial gradient PDE imaging. CLINICAL INFORMATION: pain COMPARISON: None. FINDINGS: Normal AC joint. Mild downsloping acromion. Slight subacromial spurring. Minimal impingement distal s upraspinatus. Normal supraspinatus. Normal infraspinatus. Normal teres minor. Normal subscapularis. B iceps tendon appears intact within the bicipital groove. Normal glenoid. Labrum appears grossly daryn l. No significant joint effusion. Intra-articular biceps tendon appears intact. IMPRESSION: 1. Mild downsloping of the acromion with slight subacromial spurring. Slight impingement distal supr aspinatus. 2. Normal rotator cuff. No acute tears. 3. Normal biceps tendon in the bicipital groove. 4. No significant joint effusion. 5. No other suspicious findings.
== END 2023-02-28 15:55 | disposition home or self-care (01) ==
LOC: RAD 15:54
PROVIDERS: PCP Family Medicine; Visit Provider Nurse Practitioner Family
DX: M25.511 Pain in right shoulder (principal)
CPT/HCPCS: 73221

== ENCOUNTER → 2023-03-23 15:12 | Outpatient (BNVA) | payer MEDICAID, SELFPAY | PROVIDERS: PCP Family Medicine; Visit Provider Student in an Organized Health Care Education/Training Program | DX: M89.8X1 Other specified disorders of bone, shoulder (principal); M25.511 Pain in right shoulder | CPT/HCPCS: 73030 ==

== ENCOUNTER 2023-04-12 11:33 | Outpatient (RCR) | payer MEDICAID, SELFPAY | END 2023-05-07 23:59 | disposition home or self-care (01) | LOC: SPT 11:33 | PROVIDERS: PCP Family Medicine; Visit Provider Student in an Organized Health Care Education/Training Program | DX: M25.511 Pain in right shoulder (principal); M25.512 Pain in left shoulder; G89.29 Other chronic pain | CPT/HCPCS: 97110; 97161 ==

== ENCOUNTER 2023-07-28 19:57 | Emergency (ER) | payer MEDICAID, SELFPAY ==
[2023-07-28 20:21] VITALS: BP 137/71; PULSE 80; RESP 16; TEMP 36.6; O2SAT 97; BMI 16.5
== END 2023-07-28 20:51 | disposition left against medical advice (07) ==
PROVIDERS: Emergency Provider Family Medicine; PCP Family Medicine
DX: Z53.21 Procedure and treatment not carried out due to patient leaving prior to being seen by health care provider (principal)

== ENCOUNTER 2023-08-01 08:54 | Emergency (ER) | payer MEDICAID, SELFPAY ==
[2023-08-01 09:13] VITALS: BP 109/67; PULSE 74; RESP 16; TEMP 36.7; O2SAT 98; BMI 17.9
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
[2023-08-01 10:18] VITALS: RESP 16; O2SAT 98
== END 2023-08-01 10:57 | disposition home or self-care (01) ==
PROVIDERS: Emergency Provider Physician Assistant; PCP Family Medicine
DX: S09.8XXA Other specified injuries of head, initial encounter (principal); V86.95XA Unspecified occupant of 3- or 4- wheeled all-terrain vehicle (ATV) injured in nontraffic accident, initial encounter
CPT/HCPCS: 70450; 72125; 99284

== ENCOUNTER 2023-08-08 11:49 | Emergency (ER) | payer MEDICAID, SELFPAY ==
[2023-08-08 11:55] VITALS: BP 111/76; PULSE 89; RESP 16; TEMP 36.9; O2SAT 98; BMI 17.5
[2023-08-08] MEDS: sodium chloride 0.9% 1,000 ML 999 ML IV (12:16)
[2023-08-08] MEDS: ondansetron 2 mg/ML SDV 2 mL 4 MG IVP (12:16)
[2023-08-08 12:19] LABS: Basophils # 0.1 10^3/uL (0.0-0.1); Basophils % 0.8 %; Eosinophils # 0.1 10^3/uL (0.0-0.8); Eosinophils % 1.6 %; Hematocrit 44.5 % (36-47); Lymphocytes # 1.5 10^3/uL (0.8-4.8); Lymphocytes % 23.8 %; Mean Corpuscular HGB Conc 34.4 g/dL (30-55); Mean Corpuscular Hemoglobin 30.7 pg (27-33); Mean Corpuscular Volume 89.4 fl (85-98); Mean Platelet Volume 10.9 fL (7.4-10.4); Monocytes # 0.5 10^3/uL (0.2-0.9); Monocytes % 8.1 %; Neutrophils # 4.03 10^3/uL (1.8-7.7); Neutrophils % 65.4 %; Nucleated Red Blood Cells % 0 %; Platelet Count 268 10^3/cmm (157-399); Red Blood Count 4.98 10^6/uL (3.85-5.65); Red Cell Distribution Width 12.3 % (12.1-15.1); White Blood Count 6.17 10^3/uL (3.29-11.43)
[2023-08-08 12:22] VITALS: BP 115/66; PULSE 65; O2SAT 100
[2023-08-08 12:35] LABS: Alanine Aminotransferase 9 U/L (0-33); Albumin Level 4.7 g/dL (3.5-5.2); Alkaline Phosphatase 59 U/L (35-105); Anion Gap 11.6 (5-19); Aspartate Amino Transferase 21 U/L (0-32); Blood Urea Nitrogen 5 mg/dL (6-20); Calcium 9.2 mg/dL (8.5-10.5); Carbon Dioxide 27 mmol/L (22-29); Chloride 104 mmol/L (98-107); Creatinine Clr Calc Pharmacy 81.9737; Globulin 2.6 g/dL (1.3-4.6); Glomerular Filtration Rate 88.9 mL/min (90-130); Glucose 102 mg/dL (65-115); Lipase 29 U/L (13-60); Osmolality Calculated 285 mOsm/kg (285-295); Potassium 3.6 mmol/L (3.5-5.1); Sodium 139 mmol/L (136-145); Total Bilirubin 0.5 mg/dL (0.15-1.2); Total Protein 7.3 g/dL (6.6-8.7)
--- NOTE | 2023-08-08 12:50 | W.ED.NAVMDI ---
HPI - Nausea/Vomiting/Diarrhea General: Chief complaint: Nausea/Vomiting/Diarrhea Stated complaint: vomiting Time Seen by Provider: 08/08/23 12:20 Source: patient Mode of arrival: ambulatory Limitations: no limitations History of Present Illness: Patient is a 23-year-old female presents to ED today with complaint of nausea and vomiting. Patient states she was at work on break when she began feeling hot and then got very nauseous and vomited. Patient states she continues to feel nauseous. She describes some mild right upper quadrant abdominal tenderness. No poor food exposures. No sick contacts. No fevers or other systemic symptoms. She reports chronic diarrhea. MD elicited complaint: nausea and vomiting Onset (ago): hour(s) Associated nausea: Yes Associated abdominal pain: Yes Location of pain: LUQ Severity: mild Exacerbating factors: none Relieving factors: none Associated symtoms: Reports nausea; Denies chest pain, dysuria, fatigue, headache(s) or malaise Review of Systems Const: Denies: fever(s), chills, body aches, fatigue or malaise Card: Denies: chest pain Resp: Denies: dyspnea GI: Reports: abdominal pain, nausea, vomiting and diarrhea (chronic); Denies: hematemesis : Denies: flank pain, difficulty voiding, dysuria, urinary frequency, urinary urgency or urinary hesitancy Musc: Denies: neck pain, back pain, extremity pain or joint pain Skin/Breast: Denies: rash Neuro: Denies: headache(s), numbness in extremities, weakness in extremities or sensory changes [facility] PFSH: Medical History No pertinent family history Rib pain on left side Surgical History No pertinent past surgical history Social History Smoking and tobacco/nicotine status: never used tobacco/nicotine Physical Exam Const: COMMON NORMALS: no acute distress, patient oriented x3, no limitations, alert and well nourished NUTRITIONAL APPEARANCE: thin ORIENTATION/CONSCIOUSNESS: Yes awake, Yes oriented to person, Yes oriented to place and Yes oriented to time Eye: COMMON NORMALS: no scleral icterus Resp: COMMON NORMALS: normal respiratory effort and clear to auscultation bilaterally AUSCULTATION: clear to auscultation bilaterally Cardio: COMMON NORMALS: regular rate and regular rhythm RATE: regular rate RHYTHM: regular rhythm GI: COMMON NORMALS: Normal to inspection, nondistended, normoactive bowel sounds present, Soft to palpation, No hepatosplenomegaly present and no masses INSPECTION: Yes normal to inspection AUSCULTATION: Yes normoactive bowel sounds PALPATION: Yes Soft to palpation, Yes Tenderness to palpation present (GI) (very minor LUQ pain; non surgical evaluation), No Guarding due to palpation present (GI), No Rigid due to palpation and Yes No hepatosplenomegaly present : COMMON NORMALS: Yes no CVA tenderness BLADDER/KIDNEY EXAM: Yes no CVA tenderness Back/Pelvis: COMMON NORMALS: no CVA tenderness Neuro: COMMON NORMALS: patient oriented x3 SENSORIUM/ORIENTATION: Yes alert, Yes oriented to person, Yes oriented to place and Yes oriented to time Course Vital Signs: Vital signs: Vital Signs Temperature 98.5 F 08/08/23 11:55 Pulse Rate 65 08/08/23 12:22 Respiratory Rate 16 08/08/23 11:55 Blood Pressure 115/66 08/08/23 12:22 Pulse Oximetry 100 08/08/23 12:22 Oxygen Delivery Me thod Room Air 08/08/23 12:22 MDM - Nausea/Vomiting/Diarrhea Medical Decision Making Patient states all of her symptoms have resolved after a liter of IV fluids and Zofran. She clinically appears in no acute distress. Her abdomen is nonsurgical. Her vital signs are stable. Blood work is unremarkable. Patient will be allowed discharge with return precautions. Medical Records I reviewed the patient's medical records. Lab Data I reviewed the patient's lab results. 08/08/23 12:10 08/08/23 12:10 Laboratory Results WBC 6.17 10^3/uL (3.29-11.43) 08/08/23 12:10 RBC 4.98 10^6/uL (3.85-5.65) 08/08/23 12:10 Hgb 15.30 g/dL (11.27-16.99) 08/08/23 12:10 Hct 44.5 % (36-47) 08/08/23 12:10 MCV 89.4 fl (85-98) 08/08/23 12:10 MCH 30.7 pg (27-33) 08/08/23 12:10 MCHC 34.4 g/dL (30-55) 08/08/23 12:10 RDW 12.3 % (12.1-15.1) 08/08/23 12:10 Plt Count 268 10^3/cmm (157-399) 08/08/23 12:10 MPV 10.9 fL (7.4-10.4) H 08/08/23 12:10 Neut % (Auto) 65.4 % 08/08/23 12:10 Lymph % (Auto) 23.8 % 08/08/23 12:10 [place] % (Auto) 8.1 % 08/08/23 12:10 Eos % (Auto) 1.6 % 08/08/23 12:10 Baso % (Auto) 0.8 % 08/08/23 12:10 Neut # (Auto) 4.03 10^3/uL (1.8-7.7) 08/08/23 12:10 Lymph # (Auto) 1.5 10^3/uL (0.8-4.8) 08/08/23 12:10 [place] # (Auto) 0.5 10^3/uL (0.2-0.9) 08/08/23 12:10 Eos # (Auto) 0.1 10^3/uL (0.0-0.8) 08/08/23 12:10 Baso # (Auto) 0.1 10^3/uL (0.0-0.1) 08/08/23 12:10 Nucleated RBC % (auto) 0 % 08/08/23 12:10 Nucleated RBCs # 0.0 /100WBC 08/08/23 12:10 Sodium 139 mmol/L (136-145) 08/08/23 12:10 Potassium 3.6 mmol/L (3.5-5.1) 08/08/23 12:10 Chloride 104 mmol/L (98-107) 08/08/23 12:10 Carbon Dioxide 27 mmol/L (22-29) 08/08/23 12:10 Anion Gap 11.6 (5-19) 08/08/23 12:10 BUN 5 mg/dL (6-20) L 08/08/23 12:10 Creatinine 0.8 mg/dL (0.5-0.9) 08/08/23 12:10 GFR Calculation 88.9 mL/min (90-130) L 08/08/23 12:10 Glucose 102 mg/dL (65-115) 08/08/23 12:10 Calculated Osmolality 285 mOsm/kg (285-295) 08/08/23 12:10 Calcium 9.2 mg/dL (8.5-10.5) 08/08/23 12:10 Total Bilirubin 0.5 mg/dL (0.15-1.2) 08/08/23 12:10 AST 21 U/L (0-32) 08/08/23 12:10 ALT 9 U/L (0-33) 08/08/23 12:10 Alkaline Phosphatase 59 U/L (35-105) 08/08/23 12:10 Total Protein 7.3 g/dL (6.6-8.7) 08/08/23 12:10 Albumin 4.7 g/dL (3.5-5.2) 08/08/23 12:10 Globulin 2.6 g/dL (1.3-4.6) 08/08/23 12:10 Lipase 29 U/L (13-60) 08/08/23 12:10 HCG, Qual Negative (Negative) 08/08/23 12:10 Urine Color Light yellow (Yellow) 08/08/23 13:16 Urine Appearance Sl hazy (CLEAR) A 08/08/23 13:16 Urine pH 6 (5-7) 08/08/23 13:16 Ur Specific [place] 1.005 (1.005-1.030) 08/08/23 13:16 Urine Protein Neg (Negative) 08/08/23 13:16 Urine Glucose (UA) Norm (Normal) 08/08/23 13:16 Urine Ketones Negative (Negative) 08/08/23 13:16 Urine Blood Neg (Negative) 08/08/23 13:16 Urine Nitrate Negative (Negative) 08/08/23 13:16 Urine Bilirubin Neg (Negative) 08/08/23 13:16 Urine Urobilinogen Norm mg/dL (Negative) 08/08/23 13:16 Ur Leukocyte Esterase Negative (Negative) 08/08/23 13:16 Urine RBC None /hpf (0-2) 08/08/23 13:16 Urine WBC 0-4 /hpf (0-5) H 08/08/23 13:16 Ur Squamous Epith Cells 15-25 /hpf (0-5) H 08/08/23 13:16 Amorphous Sediment Not Reportable 08/08/23 13:16 Urine Bacteria 1+ /hpf (NONE) H 08/08/23 13:16 No radiology studies performed this visit Discharge Plan Discharge Patient Disposition: Home Clinical Impression: Nausea and vomiting Qualifiers: Vomiting type: unspecified Qualified Code(s): R11.2 - Nausea with vomiting, unspecified Condition: Stable Prescriptions: New ondansetron 4 mg tablet,disintegrating 4 mg PO Q8H PRN (Reason: nausea and vomiting) Qty: 14 0RF Discharge Orders: Discharge ED (Routine); Ordered 08/08/23 Ordered By: Casandra Barnes Referrals: Glneys Rosales DO [Primary Care Provider] - Patient Instructions: Acute Nausea and Vomiting (DC) Activity Restrictions/Additional Instructions: As we discussed you may use the prescription medication as needed to help with nausea and vomiting. You need to return to the emergency department for severe abdominal pain, uncontrollable vomiting, fevers, generally feeling worse or unwell, or any other concerns you may have. Stand Alone Forms: Work/School Release Coding Level of Care Code ED Digital Strategist for [facility]
[2023-08-08 13:00] LABS: HCG, Serum Qual Negative (Negative)
[2023-08-08 13:39] LABS: Bilirubin Urine Neg (Negative); Blood Urine Neg (Negative); Glucose Urine UA Norm (Normal); Ketones Urine Negative (Negative); Leukocyte Esterase Urine Negative (Negative); Nitrate Urine Negative (Negative); Protein Urine Neg (Negative); Specific Gravity, Urine 1.005 (1.005-1.030); Urine Appearance SL Hazy (CLEAR); Urine Color Light yellow (Yellow); Urobilinogen Urine Norm (Negative); pH Urine 6 (5-7)
[2023-08-08 13:40] LABS: Add Urine Culture? No; Add Urine Microscopic? YES; Bacteria Urine 1+ /hpf; Squamous Epithelial Cell Urine 15-25 /hpf (0-5); WBC Urine 0-4 /hpf (0-5)
[2023-08-08 14:19] VITALS: BP 115/66; PULSE 65; RESP 16; TEMP 36.9; O2SAT 100
== END 2023-08-08 14:23 | disposition home or self-care (01) ==
PROVIDERS: Emergency Medicine; Emergency Provider Physician Assistant; PCP Family Medicine
DX: R11.2 Nausea with vomiting, unspecified (principal)
CPT/HCPCS: 80053; 81001; 83690; 84703; 85025; 96374; 99284; J2405; J7030

== ENCOUNTER 2023-10-23 13:59 | Outpatient (CLI) | payer MEDICAID, SELFPAY ==
--- NOTE | 2023-10-23 14:02 | US_ITS ---
WS: [id number] ULTRASOUND SOFT TISSUES cervical chain. HISTORY: CERVICAL lymphadenopathy COMPARISON: None available. TECHNIQUE: 2-D and color Doppler imaging is submitted. Imaging is performed of the bilateral cervical chains. There are normal-appearing lymph nodes. Normal fatty hilum and normal size. No increased vascularity. US/US soft tissue head neck [id number] IMPRESSION: Normal cervical chain lymph nodes.
== END 2023-10-23 14:00 | disposition home or self-care (01) ==
LOC: RAD 13:59
PROVIDERS: PCP Family Medicine; Visit Provider Family Medicine
DX: R59.0 Localized enlarged lymph nodes (principal)
CPT/HCPCS: 76536

== ENCOUNTER → 2023-11-28 08:12 | Outpatient (BNVA) | payer MEDICAID, SELFPAY | PROVIDERS: PCP Family Medicine; Visit Provider Nurse Practitioner Women's Health | DX: N92.6 Irregular menstruation, unspecified (principal); Z34.90 Encounter for supervision of normal pregnancy, unspecified, unspecified trimester | CPT/HCPCS: 81025; 84702; 86850; 86900 ==

== ENCOUNTER → 2023-12-05 14:35 | Outpatient (BNVA) | payer MEDICAID, SELFPAY | PROVIDERS: PCP Family Medicine; Visit Provider Nurse Practitioner Women's Health | DX: Z36.87 Encounter for antenatal screening for uncertain dates (principal) | CPT/HCPCS: 76801 ==

== ENCOUNTER → 2023-12-11 10:40 | Outpatient (BNVA) | payer MEDICAID, SELFPAY | PROVIDERS: PCP Family Medicine; Visit Provider Obstetrics & Gynecology | DX: Z01.419 Encounter for gynecological examination (general) (routine) without abnormal findings (principal) | CPT/HCPCS: 87624 ==

== ENCOUNTER → 2023-12-26 11:36 | Outpatient (BNVA) | payer MEDICAID, SELFPAY | PROVIDERS: PCP Family Medicine; Visit Provider Nurse Practitioner Women's Health | DX: Z34.90 Encounter for supervision of normal pregnancy, unspecified, unspecified trimester (principal) | CPT/HCPCS: 80307; 84315; 84443; 85025; 86592; 86762; 86803; 86850; 86900; 87086; 87340; 87806 ==

== ENCOUNTER 2024-01-03 18:33 | Emergency (ER) | payer MEDICAID, SELFPAY ==
[2024-01-03 19:06] VITALS: BP 116/70; PULSE 77; RESP 16; TEMP 36.8; O2SAT 100; BMI 17.7
[2024-01-03 19:27] VITALS: BP 134/62; PULSE 83; O2SAT 100
--- NOTE | 2024-01-03 19:34 | ED_ITS ---
HPI - Nausea/Vomiting/Diarrhea 2 General: Chief complaint: Nausea/Vomiting/Diarrhea Stated complaint: sore throat n/v Time Seen by Provider: 01/03/24 19:07 Source: patient Mode of arrival: ambulatory Limitations: no limitations History of Present Illness: Patient is a 23-year-old female presents to ED today with a complaint of a sore throat, nausea, vomiting. She is approximately 12 weeks . States she has had nausea and vomiting throughout her . She has been prescribed Reglan by her OB doctor and recently prescribed Zofran that she has not picked up from the pharmacy. She states her nausea and vomiting today has been significantly worse and states she has vomited countless times today. Upon arrival to the emergency department she appears in no acute distress. She states her throat has been hurting over the past 1 to 2 days. No fevers. Denies neck pain. Denies sick contacts. She is not having any vaginal bleeding or pelvic cramping. No abdominal pain. MD elicited complaint: nausea, vomiting and other (sore throat) Onset (ago): hour(s) Associated nausea: Yes Associated abdominal pain: No Location of pain: None Exacerbating factors: eating Relieving factors: none Associated symtoms: Reports nausea; Denies chest pain, dizziness, dysuria, fatigue, headache(s) or malaise Treatment prior to arrival: other (prescribed antiemetics) Related Data Home Medications Medication Instructions Recorded Confirmed vits no.126-ferrous fum tab PO DAILY 11/28/23 01/02/24 28 mg iron-folic acid 800 mcg tablet (Classic ) Previous Rx's Medication Instructions Recorded metronidazole 1.3 % (65 mg/5 gram) 1 appful vaginal DAILY 5 days #5 12/11/23 vaginal gel grams metoclopramide HCl 5 mg tablet 5 mg PO DAILY #30 tabs 12/26/23 (Reglan) ondansetron HCl 4 mg tablet 4 mg PO Q8H PRN nausea and 01/03/24 vomiting #30 tabs Allergies Allergy/AdvReac Type Severity Reaction Status Date / Time No Known Allergies Allergy Verified 01/02/24 09:59 Review of Systems 2 Const: Denies: fever(s), chills, body aches, fatigue or malaise ENMT: Reports: throat pain and odynophagia; Denies: uvular edema, enlarged tonsils, hoarseness, mouth pain, swelling of lips/tongue, dental pain, ear or mastoid pain, nasal discharge, nasal congestion or sinus pain Card: Denies: chest pain Resp: Denies: dyspnea GI: Reports: nausea and vomiting; Denies: abdominal pain, hematemesis, diarrhea, constipation, GI cramping, hematochezia or melena : Denies: flank pain, difficulty voiding, dysuria, urinary frequency, urinary urgency, urinary hesitancy, vaginal bleeding, vaginal discharge or pelvic pain Musc: Denies: neck pain or back pain Skin/Breast: Denies: rash Neuro: Denies: headache(s) or dizziness PFSH ED 2 PFSH: Medical History No pertinent family history Rib pain on left side Surgical History No pertinent past surgical history Family History Denies family history of Colon cancer Ovarian cancer Prostate cancer Diabetes Heart disease Breast cancer Hypertension Thyroid disease Stroke Social History Smoking and tobacco/nicotine status: current every day tobacco/nicotine user (vape) Physical Exam 2 Const: COMMON NORMALS: no acute distress, average body habitus, patient oriented x3, no limitations, healthy appearing, alert and well nourished G ENERAL APPEARANCE: cooperative ORIENTATION/CONSCIOUSNESS: Yes awake, Yes oriented to person, Yes oriented to place and Yes oriented to time HENMT: FACE & SINUS: normal facial exam MOUTH: Normal oral and palatal mucosa present and lip normal THROAT: posterior oropharynx abnormal erythema and tonsils absent; no uvular edema Neck/C-Spine: GENERAL: Yes lymphadenopathy Resp: COMMON NORMALS: normal respiratory effort and clear to auscultation bilaterally AUSCULTATION: clear to auscultation bilaterally Cardio: COMMON NORMALS: regular rate and regular rhythm RATE: regular rate RHYTHM: regular rhythm GI: COMMON NORMALS: Normal to inspection, nondistended, normoactive bowel sounds present, Soft to palpation and non-tender AUSCULTATION: Yes normoactive bowel sounds PALPATION: Yes Soft to palpation : COMMON NORMALS: Yes no CVA tenderness BLADDER/KIDNEY EXAM: Yes no CVA tenderness Back/Pelvis: COMMON NORMALS: no CVA tenderness Extremity: GENERAL: Yes normal exam except as noted Neuro: COMMON NORMALS: patient oriented x3 SENSORIUM/ORIENTATION: Yes alert, Yes oriented to person, Yes oriented to place and Yes oriented to time GAIT: Yes Normal gait present Skin: COMMON NORMALS: no rashes or lesions noted GENERAL SKIN EXAM: no rashes or lesions noted Course 2 Vital Signs: Vital signs: Vital Signs Temperature 98.3 F 01/03/24 19:06 Pulse Rate 91 01/03/24 20:48 Respiratory Rate 16 01/03/24 19:06 Blood Pressure 118/74 01/03/24 20:48 Pulse Oximetry 92 01/03/24 20:48 Oxygen Delivery Me thod Room Air 01/03/24 19:27 MDM - Nausea/Vomiting/Diarrhea Medical Decision Making Patient arrived in no acute distress with stable vital signs. Her blood work overall is fairly unremarkable. Mild hypokalemia at 3.2. She was given oral potassium here. UA is unremarkable. Patient was given IV fluids and diphenhydramine. She was able to eat an apple and hold down quite a bit of fluids without vomiting. Patient feels improved and would like to go home. Rapid strep collected secondary to her sore throat which was negative. Patient will be allowed discharge with return precautions. She can otherwise follow-up with her OB provider. Medical Records I reviewed the patient's medical records. Lab Data I reviewed the patient's lab results. 01/03/24 20:19 01/03/24 20:19 Laboratory Results WBC 6.86 10^3/uL (3.29-11.43) 01/03/24 20:19 Corrected WBC Cancelled 01/03/24 19:47 RBC 4.69 10^6/uL (3.85-5.65) 01/03/24 20:19 Hgb 14.40 g/dL (11.27-16.99) 01/03/24 20:19 Hct 41.9 % (36-47) 01/03/24 20:19 MCV 89.3 fl (85-98) 01/03/24 20:19 MCH 30.7 pg (27-33) 01/03/24 20:19 MCHC 34.4 g/dL (30-55) 01/03/24 20:19 RDW 12.5 % (12.1-15.1) 01/03/24 20:19 Plt Count 246 10^3/cmm (157-399) 01/03/24 20:19 MPV 10.8 fL (7.4-10.4) H 01/03/24 20:19 Gran % Cancelled 01/03/24 19:47 Neut % (Auto) 81.9 % 01/03/24 20:19 Lymph % (Auto) 7.7 % 01/03/24 20:19 [place] % (Auto) 9.5 % 01/03/24 20:19 Eos % (Auto) 0.1 % 01/03/24 20:19 Baso % (Auto) 0.4 % 01/03/24 20:19 Neut # (Auto) 5.61 10^3/uL (1.8-7.7) 01/03/24 20:19 Lymph # (Auto) 0.5 10^3/uL (0.8-4.8) L 01/03/24 20:19 [place] # (Auto) 0.7 10^3/uL (0.2-0.9) 01/03/24 20:19 Eos # (Auto) 0.0 10^3/uL (0.0-0.8) 01/03/24 20:19 Baso # (Auto) 0.0 10^3/uL (0.0-0.1) 01/03/24 20:19 Absolute Gran (auto) Cancelled 01/03/24 19:47 Nucleated RBC % (auto) 0 % 01/03/24 20:19 Nucleated RBCs # 0.0 /100WBC 01/03/24 20:19 Sodium 137 mmol/L (136-145) 01/03/24 20:19 Potassium 3.2 mmol/L (3.5-5.1) L 01/03/24 20:19 Chloride 101 mmol/L (98-107) 01/03/24 20:19 Carbon Dioxide 23 mmol/L (22-29) 01/03/24 20:19 Anion Gap 16.2 (5-19) 01/03/24 20:19 BUN 6 mg/dL (6-20) 01/03/24 20:19 Creatinine 0.6 mg/dL (0.5-0.9) 01/03/24 20:19 GFR Calculation 123.9 mL/min (90-130) 01/03/24 20:19 Glucose 72 mg/dL (65-115) 01/03/24 20:19 Calculated Osmolality 280 mOsm/kg (285-295) L 01/03/24 20:19 Calcium 8.7 mg/dL (8.5-10.5) 01/03/24 20:19 Total Bilirubin 0.3 mg/dL (0.15-1.2) 01/03/24 20:19 AST 18 U/L (0-32) 01/03/24 20:19 ALT 12 U/L (0-33) 01/03/24 20:19 Alkaline Phosphatase 47 U/L (35-105) 01/03/24 20:19 Total Protein 6.9 g/dL (6.6-8.7) 01/03/24 20:19 Albumin 4.2 g/dL (3.5-5.2) 01/03/24 20:19 Globulin 2.7 g/dL (1.3-4.6) 01/03/24 20:19 Urine Color Yellow (Yellow) 01/03/24 19:30 Urine Appearance Clear (CLEAR) 01/03/24 19:30 Urine pH 6.0 (5-7) 01/03/24 19:30 Ur Specific [place] 1.019 (1.005-1.030) 01/03/24 19:30 Urine Protein Negative (Negative) 01/03/24 19:30 Urine Glucose (UA) Negative (Normal) 01/03/24 19:30 Urine Ketones Negative (Negative) 01/03/24 19:30 Urine Blood Negative (Negative) 01/03/24 19:30 Urine Nitrate Negative (Negative) 01/03/24 19:30 Urine Bilirubin Negative (Negative) 01/03/24 19:30 Urine Urobilinogen 1.0 mg/dL (Negative) 01/03/24 19:30 Ur Leukocyte Esterase Negative (Negative) 01/03/24 19:30 Urine RBC 0-2 /hpf (0-2) 01/03/24 19:30 Urine WBC 0-5 /hpf (0-5) 01/03/24 19:30 Ur Squamous Epith Cells 0-5 /hpf (0-5) 01/03/24 19:30 Amorphous Sediment Not Reportable 01/03/24 19:30 Urine Bacteria None seen /hpf (NONE) 01/03/24 19:30 Hyaline Casts 0.81 /lpf 01/03/24 19:30 Group A Strep Rapid Negative (Negative) 01/03/24 20:00 No radiology studies performed this visit Discharge Plan Discharge Patient Disposition: Home Clinical Impression: Nausea and vomiting during , Sore throat Condition: Stable Prescriptions: No Action Classic 28 mg iron- 800 mcg tablet PO DAILY metoclopramide HCl [Reglan] 5 mg tablet 5 mg PO DAILY Qty: 30 1RF metronidazole 1.3 % (65 mg/5 gram) gel 1 appful vaginal DAILY 5 Days Qty: 5 2RF ondansetron HCl 4 mg tablet 4 mg PO Q8H PRN (Reason: nausea and vomiting) Qty: 30 3RF Discharge Orders: Discharge ED (Routine); Ordered 01/03/24 Ordered By: Casandra Barnes Referrals: Angel BONDS,Glenys Fonseca MD [Primary Care Provider] - Coding Level of Care Code ED Architectural Manager for [facility]
[2024-01-03 19:43] LABS: Charge for UA Resulting for Rev
[2024-01-03] MEDS: diphenhydrAMINE 50 mg/mL SDV 1mL 25 MG IVP (20:06)
[2024-01-03] MEDS: sodium chloride 0.9% 1,000 ML 999 ML IV (20:07)
[2024-01-03 20:16] LABS: Bilirubin Urine Negative (Negative); Blood Urine Negative (Negative); Glucose Urine UA Negative (Normal); Ketones Urine Negative (Negative); Leukocyte Esterase Urine Negative (Negative); Nitrate Urine Negative (Negative); Protein Urine Negative (Negative); Specific Gravity, Urine 1.019 (1.005-1.030); Urine Appearance Clear (CLEAR); Urine Color Yellow (Yellow)
[2024-01-03 20:17] LABS: Rapid Strep A Test Negative (Negative)
[2024-01-03 20:21] LABS: Bacteria Urine None Seen /hpf; Hyaline Casts Urine 0.81 /lpf; RBC Urine 0-2 /hpf (0-2); Squamous Epithelial Cell Urine 0-5 /hpf (0-5); WBC Urine 0-5 /hpf (0-5)
[2024-01-03 20:29] VITALS: BP 118/71; PULSE 75; O2SAT 100
[2024-01-03 20:40] LABS: Basophils % 0.4 %; Eosinophils % 0.1 %; Hematocrit 41.9 % (36-47); Lymphocytes # 0.5 10^3/uL (0.8-4.8); Lymphocytes % 7.7 %; Mean Corpuscular HGB Conc 34.4 g/dL (30-55); Mean Corpuscular Hemoglobin 30.7 pg (27-33); Mean Corpuscular Volume 89.3 fl (85-98); Mean Platelet Volume 10.8 fL (7.4-10.4); Monocytes # 0.7 10^3/uL (0.2-0.9); Monocytes % 9.5 %; Neutrophils # 5.61 10^3/uL (1.8-7.7); Neutrophils % 81.9 %; Nucleated Red Blood Cells % 0 %; Platelet Count 246 10^3/cmm (157-399); Red Blood Count 4.69 10^6/uL (3.85-5.65); Red Cell Distribution Width 12.5 % (12.1-15.1); White Blood Count 6.86 10^3/uL (3.29-11.43)
[2024-01-03 20:48] VITALS: BP 118/74; PULSE 91; O2SAT 92
[2024-01-03 20:56] LABS: Alanine Aminotransferase 12 U/L (0-33); Albumin Level 4.2 g/dL (3.5-5.2); Alkaline Phosphatase 47 U/L (35-105); Anion Gap 16.2 (5-19); Aspartate Amino Transferase 18 U/L (0-32); Blood Urea Nitrogen 6 mg/dL (6-20); Calcium 8.7 mg/dL (8.5-10.5); Carbon Dioxide 23 mmol/L (22-29); Chloride 101 mmol/L (98-107); Creatinine Clr Calc Pharmacy 109.7155; Globulin 2.7 g/dL (1.3-4.6); Glomerular Filtration Rate 123.9 mL/min (90-130); Glucose 72 mg/dL (65-115); Osmolality Calculated 280 mOsm/kg (285-295); Potassium 3.2 mmol/L (3.5-5.1); Sodium 137 mmol/L (136-145); Total Bilirubin 0.3 mg/dL (0.15-1.2); Total Protein 6.9 g/dL (6.6-8.7)
[2024-01-03] MEDS: potassium chloride ER 20 mEq Tablet 40 MEQ PO (21:16)
[2024-01-03 21:52] VITALS: BP 118/72; PULSE 101; RESP 18; O2SAT 90
== END 2024-01-03 21:47 | disposition home or self-care (01) ==
PROVIDERS: Emergency Provider Physician Assistant; PCP Family Medicine
DX: O21.9 Vomiting of pregnancy, unspecified (principal); O26.891 Other specified pregnancy related conditions, first trimester; J02.9 Acute pharyngitis, unspecified; Z3A.12 12 weeks gestation of pregnancy; O99.331 Smoking (tobacco) complicating pregnancy, first trimester; F17.290 Nicotine dependence, other tobacco product, uncomplicated
CPT/HCPCS: 36415; 80053; 81003; 81015; 85025; 87081; 87880; 96361; 96374; 99284; J1200; J7030

== ENCOUNTER 2024-01-07 15:09 | Emergency (ER) | payer MEDICAID, SELFPAY ==
[2024-01-07 16:15] VITALS: BP 119/66; PULSE 87; RESP 16; TEMP 36.6; O2SAT 95; BMI 17.9
[2024-01-07 16:36] LABS: Charge for UA Resulting for Rev
[2024-01-07 16:38] LABS: Bilirubin Urine Negative (Negative); Blood Urine Negative (Negative); Glucose Urine UA Negative (Normal); Ketones Urine Negative (Negative); Leukocyte Esterase Urine Negative (Negative); Nitrate Urine Negative (Negative); Protein Urine Negative (Negative); Specific Gravity, Urine 1.003 (1.005-1.030); Urine Appearance Clear (CLEAR); Urine Color Yellow (Yellow); Urobilinogen Urine 0.2 mg/dL (Negative); pH Urine 7.5 (5-7)
[2024-01-07 16:43] LABS: Bacteria Urine Trace /hpf; Hyaline Casts Urine 0-4 /lpf; RBC Urine 0-2 /hpf (0-2); Squamous Epithelial Cell Urine 0-5 /hpf (0-5); WBC Urine 0-5 /hpf (0-5)
[2024-01-07 17:02] LABS: Basophils % 0.2 %; Eosinophils # 0.1 10^3/uL (0.0-0.8); Eosinophils % 0.6 %; Hematocrit 39.8 % (36-47); Lymphocytes # 1.6 10^3/uL (0.8-4.8); Lymphocytes % 19.6 %; Mean Corpuscular HGB Conc 33.9 g/dL (30-55); Mean Corpuscular Hemoglobin 30.6 pg (27-33); Mean Corpuscular Volume 90.2 fl (85-98); Monocytes # 0.5 10^3/uL (0.2-0.9); Monocytes % 5.4 %; Neutrophils # 6.14 10^3/uL (1.8-7.7); Nucleated Red Blood Cells % 0 %; Platelet Count 251 10^3/cmm (157-399); Red Blood Count 4.41 10^6/uL (3.85-5.65); Red Cell Distribution Width 12.5 % (12.1-15.1); White Blood Count 8.31 10^3/uL (3.29-11.43)
[2024-01-07 17:20] LABS: Alanine Aminotransferase 9 U/L (0-33); Albumin Level 4.5 g/dL (3.5-5.2); Alkaline Phosphatase 47 U/L (35-105); Anion Gap 14.7 (5-19); Aspartate Amino Transferase 18 U/L (0-32); Blood Urea Nitrogen 5 mg/dL (6-20); Calcium 9.2 mg/dL (8.5-10.5); Carbon Dioxide 27 mmol/L (22-29); Chloride 102 mmol/L (98-107); Creatinine Clr Calc Pharmacy 132.1602; Globulin 2.7 g/dL (1.3-4.6); Glomerular Filtration Rate 152.9 mL/min (90-130); Glucose 90 mg/dL (65-115); Lipase 52 U/L (13-60); Osmolality Calculated 287 mOsm/kg (285-295); Potassium 3.7 mmol/L (3.5-5.1); Sodium 140 mmol/L (136-145); Total Bilirubin 0.2 mg/dL (0.15-1.2); Total Protein 7.2 g/dL (6.6-8.7)
[2024-01-07 18:00] VITALS: BP 128/62; PULSE 75; RESP 17; O2SAT 100
--- NOTE | 2024-01-07 18:43 | ED_ITS ---
HPI - Abdominal Pain 2 General: Chief Complaint: Abdominal Pain Stated Complaint: low back/abd pain 12 weekd preg Time Seen by Provider: 01/07/24 18:06 History of Present Illness: 23-year-old female who is 12 to 13 weeks . She is a G1, P0. She presents with lower abdominal and back pain that has happened on and off today. Currently her pain is completely gone. No vaginal bleeding or other discharge. No fever. No vomiting currently. She states she had an ultrasound at 6 weeks showing an intrauterine . No imaging since. Related Data Date of Last Menstrual Period: 11/09/23 Home Medications Medication Instructions Recorded Confirmed vits no.126-ferrous fum tab PO DAILY 11/28/23 01/02/24 28 mg iron-folic acid 800 mcg tablet (Classic ) Previous Rx's Medication Instructions Recorded metronidazole 1.3 % (65 mg/5 gram) 1 appful vaginal DAILY 5 days #5 12/11/23 vaginal gel grams metoclopramide HCl 5 mg tablet 5 mg PO DAILY #30 tabs 12/26/23 (Reglan) ondansetron HCl 4 mg tablet 4 mg PO Q8H PRN nausea and 01/03/24 vomiting #30 tabs Allergies Allergy/AdvReac Type Severity Reaction Status Date / Time No Known Allergies Allergy Verified 01/02/24 09:59 PFSH ED 2 PFSH: Medical History No pertinent family history Rib pain on left side Surgical History No pertinent past surgical history Family History Denies family history of Colon cancer Ovarian cancer Prostate cancer Diabetes Heart disease Breast cancer Hypertension Thyroid disease Stroke Social History Smoking and tobacco/nicotine status: current every day tobacco/nicotine user (vape) Female Reproductive History: Date of last menstrual period: 11/09/23 Physical Exam 2 Const: COMMON NORMALS: no acute distress GENERAL APPEARANCE: cooperative; not ill appearing and not frail appearing HENMT: COMMON NORMALS: normocephalic, atraumatic and Normal external nose present HEAD & SCALP: normocephalic and atraumatic FACE & SINUS: normal facial exam and face symmetric NOSE: Normal external nose present Eye: COMMON NORMALS: Equal, round and reactive pupils present and EOMs intact bilaterally PUPIL: Yes Equal, round and reactive pupils present Neck/C-Spine: GENERAL: Yes trachea midline Chest: CHEST: Yes Symmetrical chest wall rise Resp: COMMON NORMALS: normal respiratory effort, No retractions, No use of accessory muscles and clear to auscultation bilaterally AUSCULTATION: clear to auscultation bilaterally Cardio: COMMON NORMALS: regular rate and regular rhythm RATE: regular rate RHYTHM: regular rhythm GI: COMMON NORMALS: Normal to inspection, nondistended, normoactive bowel sounds present and Soft to palpation PALPATION: Yes Soft to palpation and No Tenderness to palpation present (GI) Extremity: COMMON NORMALS: no pedal edema Neuro: MELIDA COMA SCALE: document GCS findings Melida coma scale eye opening: Spontaneous [place] coma scale verbal response: Orientated [place] coma scale motor response: Obey commands [place]ickman coma scale total score: 15 S ENSORY EXAM: Yes extremities (intact) Psych: COMMON NORMALS: speech normal SPEECH: Yes normal speech Skin: COMMON NORMALS: no rashes or lesions noted GENERAL SKIN EXAM: no rashes or lesions noted Course 2 Vital Signs: Vital signs: Vital Signs Temperature 97.9 F 01/07/24 18:56 Pulse Rate 76 01/07/24 18:56 Respiratory Rate 16 01/07/24 18:56 Blood Pressure 137/64 01/07/24 18:56 Pulse Oximetry 100 01/07/24 18:56 Oxygen Delivery Me thod Room Air 01/07/24 18:00 MDM - Abdominal Pain Medical Decision Making Vital signs are normal. She is afebrile. CBC is normal. BMP is normal. Urinalysis is negative. No elevation in liver enzymes. She has not had bleeding or discharge. Bedside ultrasound reveals intrauterine with positive movement of the fetus. Heart rate is in the 160s by ultrasound. Placenta appears intact. [place]-rump length measures 12 weeks 6 days. With resolution of her symptoms, reassuring ultrasound, reassuring laboratory work, she will be allowed discharge home. She is to return for return of symptoms or new concerns. Lab Data 01/07/24 16:45 01/07/24 16:45 Labs/Radiology: Laboratory Results WBC 8.31 10^3/uL (3.29-11.43) 01/07/24 16:45 RBC 4.41 10^6/uL (3.85-5.65) 01/07/24 16:45 Hgb 13.50 g/dL (11.27-16.99) 01/07/24 16:45 Hct 39.8 % (36-47) 01/07/24 16:45 MCV 90.2 fl (85-98) 01/07/24 16:45 MCH 30.6 pg (27-33) 01/07/24 16:45 MCHC 33.9 g/dL (30-55) 01/07/24 16:45 RDW 12.5 % (12.1-15.1) 01/07/24 16:45 Plt Count 251 10^3/cmm (157-399) 01/07/24 16:45 MPV 11.0 fL (7.4-10.4) H 01/07/24 16:45 Neut % (Auto) 74.0 % 01/07/24 16:45 Lymph % (Auto) 19.6 % 01/07/24 16:45 [place] % (Auto) 5.4 % 01/07/24 16:45 Eos % (Auto) 0.6 % 01/07/24 16:45 Baso % (Auto) 0.2 % 01/07/24 16:45 Neut # (Auto) 6.14 10^3/uL (1.8-7.7) 01/07/24 16:45 Lymph # (Auto) 1.6 10^3/uL (0.8-4.8) 01/07/24 16:45 [place] # (Auto) 0.5 10^3/uL (0.2-0.9) 01/07/24 16:45 Eos # (Auto) 0.1 10^3/uL (0.0-0.8) 01/07/24 16:45 Baso # (Auto) 0.0 10^3/uL (0.0-0.1) 01/07/24 16:45 Nucleated RBC % (auto) 0 % 01/07/24 16:45 Nucleated RBCs # 0.0 /100WBC 01/07/24 16:45 Sodium 140 mmol/L (136-145) 01/07/24 16:45 Potassium 3.7 mmol/L (3.5-5.1) 01/07/24 16:45 Chloride 102 mmol/L (98-107) 01/07/24 16:45 Carbon Dioxide 27 mmol/L (22-29) 01/07/24 16:45 Anion Gap 14.7 (5-19) 01/07/24 16:45 BUN 5 mg/dL (6-20) L 01/07/24 16:45 Creatinine 0.5 mg/dL (0.5-0.9) 01/07/24 16:45 GFR Calculation 152.9 mL/min (90-130) H 01/07/24 16:45 Glucose 90 mg/dL (65-115) 01/07/24 16:45 Calculated Osmolality 287 mOsm/kg (285-295) 01/07/24 16:45 Calcium 9.2 mg/dL (8.5-10.5) 01/07/24 16:45 Total Bilirubin 0.2 mg/dL (0.15-1.2) 01/07/24 16:45 AST 18 U/L (0-32) 01/07/24 16:45 ALT 9 U/L (0-33) 01/07/24 16:45 Alkaline Phosphatase 47 U/L (35-105) 01/07/24 16:45 Total Protein 7.2 g/dL (6.6-8.7) 01/07/24 16:45 Albumin 4.5 g/dL (3.5-5.2) 01/07/24 16:45 Globulin 2.7 g/dL (1.3-4.6) 01/07/24 16:45 Lipase 52 U/L (13-60) 01/07/24 16:45 Ser , Semi-Qnt 10127.00 mIU/mL 01/07/24 16:45 Urine Color Yellow (Yellow) 01/07/24 16:31 Urine Appearance Clear (CLEAR) 01/07/24 16:31 Urine pH 7.5 (5-7) 01/07/24 16:31 Ur Specific [place] 1.003 (1.005-1.030) L 01/07/24 16:31 Urine Protein Negative (Negative) 01/07/24 16:31 Urine Glucose (UA) Negative (Normal) 01/07/24 16:31 Urine Ketones Negative (Negative) 01/07/24 16:31 Urine Blood Negative (Negative) 01/07/24 16:31 Urine Nitrate Negative (Negative) 01/07/24 16:31 Urine Bilirubin Negative (Negative) 01/07/24 16:31 Urine Urobilinogen 0.2 mg/dL (Negative) 01/07/24 16:31 Ur Leukocyte Esterase Negative (Negative) 01/07/24 16:31 Urine RBC 0-2 /hpf (0-2) 01/07/24 16:31 Urine WBC 0-5 /hpf (0-5) 01/07/24 16:31 Ur Squamous Epith Cells 0-5 /hpf (0-5) 01/07/24 16:31 Amorphous Sediment Not Reportable 01/07/24 16:31 Urine Bacteria Trace /hpf (NONE) 01/07/24 16:31 Hyaline Casts 0-4 /lpf H 01/07/24 16:31 No radiology studies performed this visit Discharge Plan Discharge Patient Disposition: Home Clinical Impression: Intrauterine , Abdominal pain affecting Condition: Stable Prescriptions: No Action Classic 28 mg iron- 800 mcg tablet PO DAILY metoclopramide HCl [Reglan] 5 mg tablet 5 mg PO DAILY Qty: 30 1RF metronidazole 1.3 % (65 mg/5 gram) gel 1 appful vaginal DAILY 5 Days Qty: 5 2RF ondansetron HCl 4 mg tablet 4 mg PO Q8H PRN (Reason: nausea and vomiting) Qty: 30 3RF Discharge Orders: Discharge ED (Routine); Ordered 01/07/24 Ordered By: Nikita Cardozo Referrals: Glenys Rosales DO [Primary Care Provider] - 1-3 days Patient Instructions: Abdominal Pain in (ED), Opioid Safety, Pain Management Activity Restrictions/Additional Instructions: Return for fever, vomiting liquids, increasing pain, vaginal bleeding or discharge. Call your doctor Monday. Unable to see you earlier than your previously scheduled appointment. Coding Level of Care Code ED Stunt Man for Wanda Lawton
[2024-01-07 18:56] VITALS: BP 137/64; PULSE 76; RESP 16; TEMP 36.6; O2SAT 100
== END 2024-01-07 18:56 | disposition home or self-care (01) ==
PROVIDERS: Emergency Medicine; Emergency Provider Emergency Medicine; PCP Family Medicine
DX: O26.891 Other specified pregnancy related conditions, first trimester (principal); R10.30 Lower abdominal pain, unspecified; O99.331 Smoking (tobacco) complicating pregnancy, first trimester; F17.290 Nicotine dependence, other tobacco product, uncomplicated; Z3A.12 12 weeks gestation of pregnancy
CPT/HCPCS: 36415; 80053; 81003; 81015; 83690; 84702; 85025; 99283

== ENCOUNTER → 2024-01-30 12:55 | Outpatient (BNVA) | payer MEDICAID, SELFPAY | PROVIDERS: PCP Family Medicine; Visit Provider Nurse Practitioner Women's Health | DX: Z34.90 Encounter for supervision of normal pregnancy, unspecified, unspecified trimester (principal) | CPT/HCPCS: 82105; 84315 ==

== ENCOUNTER → 2024-03-11 09:27 | Outpatient (BNVA) | payer MEDICAID, SELFPAY | PROVIDERS: PCP Family Medicine; Visit Provider Obstetrics & Gynecology | DX: Z36.2 Encounter for other antenatal screening follow-up (principal); Z3A.22 22 weeks gestation of pregnancy | CPT/HCPCS: 76805; 76817 ==

== ENCOUNTER 2024-03-16 21:35 | Outpatient (CLI) | payer MEDICAID, SELFPAY ==
[2024-03-16 21:40] VITALS: BMI 20.5
[2024-03-16 21:45] VITALS: BP 118/71; PULSE 89
[2024-03-16 21:59] VITALS: BP 121/66; PULSE 71
[2024-03-16 22:06] LABS: Bilirubin Urine Negative (Negative); Blood Urine Negative (Negative); Glucose Urine UA Negative (Normal); Ketones Urine Negative (Negative); Leukocyte Esterase Urine 3+ (Negative); Nitrate Urine Negative (Negative); Protein Urine Negative (Negative); Specific Gravity, Urine 1.005 (1.005-1.030); Urine Appearance Clear (CLEAR); Urine Color Yellow (Yellow)
[2024-03-16 22:08] LABS: Bacteria Urine Trace /hpf; Hyaline Casts Urine 0.81 /lpf; RBC Urine 0-2 /hpf (0-2); Squamous Epithelial Cell Urine 0-5 /hpf (0-5); WBC Urine 21-50 /hpf (0-5)
[2024-03-16 22:11] LABS: Add Urine Culture? Yes
[2024-03-16 22:14] VITALS: BP 115/66; PULSE 77
[2024-03-16 22:29] VITALS: BP 118/60; PULSE 72
[2024-03-16] MEDS: lactated ringers 1,000 ML 999 ML IV (23:41)
[2024-03-16] MEDS: ceFAZolin 2,000 mg SDV 2000 MG IVP (23:41)
[2024-03-17 00:14] VITALS: TEMP 35.4
[2024-03-17 00:54] VITALS: BP 121/68; PULSE 75
== END 2024-03-17 00:53 | disposition home or self-care (01) ==
LOC: OPOB 21:36 → OBGYN 21:37
PROVIDERS: PCP Family Medicine; Visit Provider Obstetrics & Gynecology
DX: O26.899 Other specified pregnancy related conditions, unspecified trimester (principal); Z3A.00 Weeks of gestation of pregnancy not specified; R10.9 Unspecified abdominal pain
CPT/HCPCS: 81001; 87086; J0690; J7120

== ENCOUNTER → 2024-03-27 08:50 | Outpatient (BNVA) | payer MEDICAID, SELFPAY | PROVIDERS: PCP Family Medicine; Visit Provider Nurse Practitioner Women's Health | DX: Z34.90 Encounter for supervision of normal pregnancy, unspecified, unspecified trimester (principal) | CPT/HCPCS: 84315; 87086 ==

== ENCOUNTER 2024-04-12 16:30 | Outpatient (CLI) | payer MEDICAID, SELFPAY ==
[2024-04-12 16:45] VITALS: RESP 18; BMI 20.8
[2024-04-12 16:48] VITALS: BP 125/73; PULSE 76
== END 2024-04-12 17:21 | disposition home or self-care (01) ==
LOC: OPOB 16:33 → OBGYN 16:33
PROVIDERS: PCP Family Medicine; Visit Provider Obstetrics & Gynecology
DX: O26.899 Other specified pregnancy related conditions, unspecified trimester (principal); Z3A.00 Weeks of gestation of pregnancy not specified
CPT/HCPCS: 99211

== ENCOUNTER 2024-04-21 15:56 | Outpatient (CLI) | payer MEDICAID, SELFPAY ==
[2024-04-21] VITALS (9 sets, daily range): BP systolic 121–138; BP diastolic 58–88; PULSE 84–100; O2SAT 98; BMI 20.8
[2024-04-21 16:28] LABS: Bilirubin Urine Negative (Negative); Blood Urine Negative (Negative); Glucose Urine UA Negative (Normal); Ketones Urine Negative (Negative); Leukocyte Esterase Urine 3+ (Negative); Nitrate Urine Negative (Negative); Protein Urine Negative (Negative); Specific Gravity, Urine 1.007 (1.005-1.030); Urine Appearance Cloudy (CLEAR); Urine Color Yellow (Yellow)
[2024-04-21 16:33] LABS: Bacteria Urine 2+ /hpf; Hyaline Casts Urine 2.46 /lpf; RBC Urine 0-2 /hpf (0-2); Squamous Epithelial Cell Urine 0-5 /hpf (0-5); WBC Urine 51-100 /hpf (0-5)
[2024-04-21 16:42] LABS: Add Urine Culture? Yes; UA Slide Review UA Slide Review Perf
[2024-04-21] MEDS: ceFAZolin 2,000 mg SDV 2000 MG IVP (17:12)
[2024-04-21] MEDS: lactated ringers 1,000 ML 125 ML IV (17:12)
== END 2024-04-21 18:30 | disposition home or self-care (01) ==
LOC: OPOB 15:57 → OBGYN 15:58
PROVIDERS: PCP Family Medicine; Visit Provider Obstetrics & Gynecology
DX: O36.8190 Decreased fetal movements, unspecified trimester, not applicable or unspecified (principal); Z3A.00 Weeks of gestation of pregnancy not specified; R10.2 Pelvic and perineal pain
CPT/HCPCS: 36415; 81001; 87086; 99211; J0690; J7120

== ENCOUNTER → 2024-04-24 10:39 | Outpatient (BNVA) | payer MEDICAID, SELFPAY | PROVIDERS: PCP Family Medicine; Visit Provider Obstetrics & Gynecology | DX: Z34.90 Encounter for supervision of normal pregnancy, unspecified, unspecified trimester (principal) | CPT/HCPCS: 82950; 84315 ==

== ENCOUNTER 2024-05-05 21:04 | Outpatient (CLI) | payer MEDICAID, SELFPAY ==
[2024-05-05] VITALS (8 sets, daily range): BP systolic 124–135; BP diastolic 63–79; PULSE 88–100; RESP 16; TEMP 36.1; O2SAT 97; BMI 21.5
[2024-05-05 21:43] LABS: Bilirubin Urine Negative (Negative); Blood Urine Negative (Negative); Glucose Urine UA Negative (Normal); Ketones Urine Negative (Negative); Leukocyte Esterase Urine 2+ (Negative); Nitrate Urine Negative (Negative); Protein Urine Negative (Negative); Specific Gravity, Urine 1.012 (1.005-1.030); Urine Appearance Clear (CLEAR); Urine Color Yellow (Yellow)
[2024-05-05 21:48] LABS: Add Urine Microscopic? YES; Bacteria Urine Trace /hpf; RBC Urine 0-2 /hpf (0-2); Squamous Epithelial Cell Urine 0-5 /hpf (0-5); WBC Urine 51-100 /hpf (0-5)
[2024-05-05 21:57] LABS: Add Urine Culture? Yes
[2024-05-05] MEDS: ceFAZolin 2,000 mg SDV 2000 MG IVP (22:35)
== END 2024-05-05 23:47 | disposition home or self-care (01) ==
LOC: OPOB 21:15 → OBGYN 21:16
PROVIDERS: PCP Family Medicine; Visit Provider Obstetrics & Gynecology
DX: O26.899 Other specified pregnancy related conditions, unspecified trimester (principal); Z3A.00 Weeks of gestation of pregnancy not specified; M54.9 Dorsalgia, unspecified
CPT/HCPCS: 59025; 81001; 87086; 99211; J0690

== ENCOUNTER → 2024-05-09 10:33 | Outpatient (BNVA) | payer MEDICAID, SELFPAY | PROVIDERS: PCP Family Medicine; Visit Provider Obstetrics & Gynecology | DX: Z34.93 Encounter for supervision of normal pregnancy, unspecified, third trimester (principal) | CPT/HCPCS: 76816; 82951; 82952 ==

== ENCOUNTER → 2024-05-14 09:09 | Outpatient (BNVA) | payer MEDICAID, SELFPAY | PROVIDERS: PCP Family Medicine; Visit Provider Obstetrics & Gynecology | DX: Z34.90 Encounter for supervision of normal pregnancy, unspecified, unspecified trimester (principal); Z3A.00 Weeks of gestation of pregnancy not specified | CPT/HCPCS: 84315 ==

== ENCOUNTER 2024-05-16 17:35 | Outpatient (CLI) | payer MEDICAID, SELFPAY ==
[2024-05-16] VITALS (9 sets, daily range): BP systolic 128–153; BP diastolic 62–75; PULSE 93–107; RESP 16–18; BMI 22.8
[2024-05-16] MEDS: NIFEdipine 10 mg Capsule 30 MG PO (18:37)
[2024-05-16 18:41] LABS: Basophils # 0.1 10^3/uL (0.0-0.1); Basophils % 0.3 %; Eosinophils # 0.1 10^3/uL (0.0-0.8); Eosinophils % 0.6 %; Hematocrit 35.3 % (36-47); Lymphocytes # 1.2 10^3/uL (0.8-4.8); Lymphocytes % 6.9 %; Mean Corpuscular HGB Conc 32.9 g/dL (30-55); Mean Corpuscular Hemoglobin 28.4 pg (27-33); Mean Corpuscular Volume 86.5 fl (85-98); Mean Platelet Volume 9.9 fL (7.4-10.4); Monocytes % 5.5 %; Neutrophils % 83.6 %; Nucleated Red Blood Cells % 0 %; Platelet Count 434 10^3/cmm (157-399); Red Blood Count 4.08 10^6/uL (3.85-5.65); Red Cell Distribution Width 12.3 % (12.1-15.1); White Blood Count 17.94 10^3/uL (3.29-11.43)
[2024-05-16 18:47] LABS: Bilirubin Urine Negative (Negative); Blood Urine Negative (Negative); Glucose Urine UA Negative (Normal); Ketones Urine Negative (Negative); Leukocyte Esterase Urine 2+ (Negative); Nitrate Urine Negative (Negative); Protein Urine Negative (Negative); Specific Gravity, Urine 1.016 (1.005-1.030); Urine Appearance Clear (CLEAR); Urine Color Yellow (Yellow); Urobilinogen Urine 0.2 mg/dL (Negative)
[2024-05-16 18:52] LABS: Add Urine Microscopic? YES; Bacteria Urine Trace /hpf; RBC Urine 0-2 /hpf (0-2); Squamous Epithelial Cell Urine 0-5 /hpf (0-5); WBC Urine >100 /hpf (0-5)
[2024-05-16 18:57] LABS: Add Urine Culture? Yes
[2024-05-16 19:09] LABS: Urine Creatinine 58 mg/dL (28-217); Urine Protein Random 14 mg/dL
[2024-05-16 19:11] LABS: UPRO/UCREAT Ratio 0.24 mg/mg CR
[2024-05-16 19:13] LABS: Alanine Aminotransferase 69 U/L (0-33); Albumin Level 3.5 g/dL (3.5-5.2); Alkaline Phosphatase 150 U/L (35-105); Anion Gap 15.8 (5-19); Aspartate Amino Transferase 33 U/L (0-32); Blood Urea Nitrogen 13 mg/dL (6-20); Calcium 9.5 mg/dL (8.5-10.5); Carbon Dioxide 26 mmol/L (22-29); Chloride 97 mmol/L (98-107); Creatinine Clr Calc Pharmacy 145.6931; Globulin 4.2 g/dL (1.3-4.6); Glomerular Filtration Rate 152.9 mL/min (90-130); Glucose 80 mg/dL (65-115); Osmolality Calculated 279 mOsm/kg (285-295); Potassium 3.8 mmol/L (3.5-5.1); Sodium 135 mmol/L (136-145); Total Bilirubin 0.2 mg/dL (0.15-1.2); Total Protein 7.7 g/dL (6.6-8.7)
== END 2024-05-16 19:50 | disposition home or self-care (01) ==
LOC: OPOB 17:37 → OBGYN 17:37
PROVIDERS: PCP Family Medicine; Visit Provider Obstetrics & Gynecology
DX: O36.8190 Decreased fetal movements, unspecified trimester, not applicable or unspecified (principal); Z3A.00 Weeks of gestation of pregnancy not specified
CPT/HCPCS: 36415; 59025; 80053; 81001; 82570; 84156; 84550; 85025; 87086; 99211

== ENCOUNTER 2024-05-24 11:50 | Outpatient (CLI) | payer MEDICAID, SELFPAY ==
[2024-05-24] MEDS: betamethasone susp 6 mg/mL 1 mL (per mL) 12 MG IM (12:10)
== END 2024-05-24 12:20 | disposition home or self-care (01) ==
LOC: OPOB 11:54 → OBGYN 11:55
PROVIDERS: PCP Family Medicine; Visit Provider Obstetrics & Gynecology
DX: O26.899 Other specified pregnancy related conditions, unspecified trimester (principal); Z3A.00 Weeks of gestation of pregnancy not specified
CPT/HCPCS: 84315; 96372; J0702

== ENCOUNTER 2024-05-25 12:46 | Outpatient (CLI) | payer MEDICAID, SELFPAY ==
[2024-05-25 12:46] VITALS: BMI 23.6
[2024-05-25] MEDS: betamethasone susp 6 mg/mL 1 mL (per mL) 12 MG IM (13:01)
== END 2024-05-25 13:01 | disposition home or self-care (01) ==
LOC: OPOB 12:49 → OBGYN 12:50
PROVIDERS: PCP Family Medicine; Visit Provider Obstetrics & Gynecology
DX: O26.899 Other specified pregnancy related conditions, unspecified trimester (principal); Z3A.00 Weeks of gestation of pregnancy not specified
CPT/HCPCS: 96372; J0702

== ENCOUNTER 2024-05-26 12:36 | Outpatient (CLI) | payer MEDICAID, SELFPAY ==
[2024-05-26] VITALS (8 sets, daily range): BP systolic 114–134; BP diastolic 58–64; PULSE 72–90; RESP 16; BMI 23.0
== END 2024-05-26 14:18 | disposition home or self-care (01) ==
LOC: OPOB 12:37 → OBGYN 12:38
PROVIDERS: PCP Family Medicine; Visit Provider Obstetrics & Gynecology
DX: O26.899 Other specified pregnancy related conditions, unspecified trimester (principal); Z3A.00 Weeks of gestation of pregnancy not specified; R51.9 Headache, unspecified
CPT/HCPCS: 59025; 99211

== ENCOUNTER → 2024-05-29 14:54 | Outpatient (BNVA) | payer MEDICAID, SELFPAY | PROVIDERS: PCP Family Medicine; Visit Provider Obstetrics & Gynecology | DX: Z34.90 Encounter for supervision of normal pregnancy, unspecified, unspecified trimester (principal) | CPT/HCPCS: 76816; 84315 ==

== ENCOUNTER 2024-06-01 23:00 | Outpatient (CLI) | payer MEDICAID, SELFPAY ==
[2024-06-01 23:01] VITALS: RESP 16; BMI 23.3
[2024-06-01 23:10] VITALS: BP 137/71; PULSE 90; TEMP 36.3
[2024-06-01 23:29] VITALS: BP 131/65; PULSE 94
[2024-06-01 23:41] VITALS: BP 127/62; PULSE 93
[2024-06-01 23:56] VITALS: BP 137/68; PULSE 96
[2024-06-02 00:11] VITALS: BP 136/65; PULSE 93
[2024-06-02 00:26] VITALS: BP 133/61; PULSE 85
[2024-06-02] MEDS: acetaminophen-codeine 300-30mg Tablet 1 TAB PO (00:30)
[2024-06-02 00:41] VITALS: BP 128/62; PULSE 88
[2024-06-02 00:56] VITALS: BP 128/62; PULSE 80
[2024-06-02 01:13] VITALS: BP 137/68; PULSE 96; RESP 16; TEMP 36.3; O2SAT 98
== END 2024-06-02 01:13 | disposition home or self-care (01) ==
LOC: OPOB 23:00 → OBGYN 23:01
PROVIDERS: Absent Provider Obstetrics & Gynecology; PCP Family Medicine; Visit Provider Obstetrics & Gynecology
DX: O16.9 Unspecified maternal hypertension, unspecified trimester (principal); Z3A.00 Weeks of gestation of pregnancy not specified
CPT/HCPCS: 59025; 99211

== ENCOUNTER 2024-06-04 23:57 | Outpatient (CLI) | payer MEDICAID, SELFPAY ==
[2024-06-05] VITALS (28 sets, daily range): BP systolic 117–135; BP diastolic 56–75; PULSE 84–145; RESP 16; TEMP 36.7; O2SAT 98–99; BMI 24.3
[2024-06-05 00:52] LABS: Nitrazine Paper, PH Inconclusive
[2024-06-05 01:26] LABS: Actim Prom Negative
[2024-06-05] MEDS: NIFEdipine 10 mg Capsule 30 MG PO (01:36)
[2024-06-05] MEDS: terbutaline 1 mg/mL INJ 0.25 MG SUBCUT (02:16)
== END 2024-06-05 03:40 | disposition home or self-care (01) ==
LOC: OPOB 23:58 → OBGYN 06-05 00:03
PROVIDERS: PCP Family Medicine; Visit Provider Obstetrics & Gynecology
DX: O26.899 Other specified pregnancy related conditions, unspecified trimester (principal); Z3A.00 Weeks of gestation of pregnancy not specified; N89.8 Other specified noninflammatory disorders of vagina; R10.9 Unspecified abdominal pain
CPT/HCPCS: 59025; 83986; 84112; 96372; 99211; J3105

== ENCOUNTER 2024-06-09 02:18 | Outpatient (CLI) | payer MEDICAID, SELFPAY ==
[2024-06-09 02:18] VITALS: BMI 24.8
[2024-06-09 02:31] VITALS: BP 134/73; PULSE 91
[2024-06-09 02:56] VITALS: BP 137/76; PULSE 93
[2024-06-09 02:59] LABS: Bilirubin Urine Negative (Negative); Blood Urine Negative (Negative); Glucose Urine UA Negative (Normal); Ketones Urine Negative (Negative); Leukocyte Esterase Urine 2+ (Negative); Nitrate Urine Negative (Negative); Protein Urine Negative (Negative); Specific Gravity, Urine 1.009 (1.005-1.030); Urine Appearance Clear (CLEAR); Urine Color Yellow (Yellow); Urobilinogen Urine 0.2 mg/dL (Negative); pH Urine 5.5 (5-7)
[2024-06-09 03:04] LABS: Bacteria Urine Trace /hpf; Hyaline Casts Urine 2.05 /lpf; RBC Urine 0-2 /hpf (0-2); Squamous Epithelial Cell Urine 0-5 /hpf (0-5); WBC Urine 21-50 /hpf (0-5)
[2024-06-09 03:11] VITALS: BP 130/69; PULSE 96
[2024-06-09 03:12] LABS: Add Urine Culture? Yes
[2024-06-09 03:26] VITALS: BP 131/75; PULSE 105
[2024-06-09 03:47] VITALS: BP 131/75; PULSE 96; RESP 16; O2SAT 98
== END 2024-06-09 03:50 | disposition home or self-care (01) ==
LOC: OPOB 02:24 → OBGYN 02:25
PROVIDERS: PCP Family Medicine; Visit Provider Obstetrics & Gynecology
DX: O26.899 Other specified pregnancy related conditions, unspecified trimester (principal); Z3A.00 Weeks of gestation of pregnancy not specified; R10.9 Unspecified abdominal pain
CPT/HCPCS: 59025; 81001; 87086; 99211

== ENCOUNTER → 2024-06-12 11:03 | Outpatient (BNVA) | payer MEDICAID, SELFPAY | PROVIDERS: PCP Family Medicine; Visit Provider Obstetrics & Gynecology | DX: Z34.93 Encounter for supervision of normal pregnancy, unspecified, third trimester (principal) | CPT/HCPCS: 84315 ==

== ENCOUNTER 2024-06-13 00:41 | Outpatient (CLI) | payer MEDICAID, SELFPAY ==
[2024-06-13 01:19] VITALS: BP 124/68; PULSE 83
[2024-06-13 01:33] VITALS: BP 121/68; PULSE 84
[2024-06-13 01:41] VITALS: BMI 24.5
[2024-06-13 01:41] LABS: Actim Prom Negative
[2024-06-13 01:49] VITALS: BP 117/73; PULSE 82
[2024-06-13 01:59] VITALS: BP 125/85; PULSE 91; TEMP 36
[2024-06-13 02:05] VITALS: BP 125/85; PULSE 91; RESP 15; TEMP 36; O2SAT 98
== END 2024-06-13 02:06 | disposition home or self-care (01) ==
LOC: OPOB 00:45 → OBGYN 00:46
PROVIDERS: PCP Family Medicine; Visit Provider Obstetrics & Gynecology
DX: O26.899 Other specified pregnancy related conditions, unspecified trimester (principal); Z3A.00 Weeks of gestation of pregnancy not specified; N89.8 Other specified noninflammatory disorders of vagina
CPT/HCPCS: 59025; 83986; 84112; 99211

== ENCOUNTER 2024-06-17 08:58 | Outpatient (CLI) | payer MEDICAID, SELFPAY ==
[2024-06-17 09:00] VITALS: BMI 25.0
[2024-06-17 09:19] VITALS: BP 131/68; PULSE 85
[2024-06-17 09:40] VITALS: BP 112/60; PULSE 82
[2024-06-17 09:42] VITALS: RESP 18
[2024-06-17 09:59] VITALS: BP 118/68; PULSE 82
[2024-06-17 10:00] VITALS: BP 118/68; PULSE 82; O2SAT 98
== END 2024-06-17 10:16 | disposition home or self-care (01) ==
LOC: OPOB 09:02 → OBGYN 09:02
PROVIDERS: PCP Family Medicine; Visit Provider Obstetrics & Gynecology
DX: O26.899 Other specified pregnancy related conditions, unspecified trimester (principal); Z3A.00 Weeks of gestation of pregnancy not specified; N89.8 Other specified noninflammatory disorders of vagina
CPT/HCPCS: 59025; 99211

== ENCOUNTER → 2024-06-19 16:09 | Outpatient (BNVA) | payer MEDICAID, SELFPAY | PROVIDERS: PCP Family Medicine; Visit Provider Obstetrics & Gynecology | DX: Z34.90 Encounter for supervision of normal pregnancy, unspecified, unspecified trimester (principal) | CPT/HCPCS: 84315; 87081 ==

== ENCOUNTER 2024-06-28 11:30 | Outpatient (CLI) | payer MEDICAID, SELFPAY ==
[2024-06-28 11:30] VITALS: BMI 31.2
[2024-06-28 11:36] VITALS: BP 123/67; PULSE 91
[2024-06-28 11:57] VITALS: BP 122/63; PULSE 101
== END 2024-06-28 12:08 | disposition home or self-care (01) ==
LOC: OPOB 11:31 → OBGYN 11:34
PROVIDERS: PCP Family Medicine; Visit Provider Obstetrics & Gynecology
DX: O36.8190 Decreased fetal movements, unspecified trimester, not applicable or unspecified (principal); Z3A.00 Weeks of gestation of pregnancy not specified
CPT/HCPCS: 59025; 84315; 99211

== ENCOUNTER → 2024-07-03 09:17 | Outpatient (BNVA) | payer MEDICAID, SELFPAY | PROVIDERS: PCP Family Medicine; Visit Provider Obstetrics & Gynecology | DX: Z3A.10 10 weeks gestation of pregnancy (principal); Z34.90 Encounter for supervision of normal pregnancy, unspecified, unspecified trimester | CPT/HCPCS: 84315; 87081 ==

== ENCOUNTER 2024-07-15 15:12 | Outpatient (CLI) | payer MEDICAID, SELFPAY ==
[2024-07-15 15:28] VITALS: BP 131/79; PULSE 80
[2024-07-15 15:30] VITALS: BMI 26.6
[2024-07-15 15:31] VITALS: RESP 16
[2024-07-15 15:43] VITALS: BP 134/76; PULSE 86
[2024-07-15 15:47] LABS: Nitrazine Paper, PH Negative
[2024-07-15 15:58] VITALS: BP 122/69; PULSE 86
[2024-07-15 16:13] VITALS: BP 124/68; PULSE 78
[2024-07-15 16:18] VITALS: BP 124/68; PULSE 78; RESP 16
== END 2024-07-15 16:19 | disposition home or self-care (01) ==
LOC: OPOB 15:12 → OBGYN 15:13
PROVIDERS: PCP Family Medicine; Visit Provider Obstetrics & Gynecology
DX: O26.899 Other specified pregnancy related conditions, unspecified trimester (principal); Z3A.00 Weeks of gestation of pregnancy not specified; N89.8 Other specified noninflammatory disorders of vagina
CPT/HCPCS: 59025; 83986; 99211

== ENCOUNTER → 2024-07-23 11:57 | Outpatient (BNVA) | payer MEDICAID, SELFPAY | PROVIDERS: PCP Family Medicine; Visit Provider Nurse Practitioner Women's Health | DX: O90.89 Other complications of the puerperium, not elsewhere classified (principal); R51.9 Headache, unspecified | CPT/HCPCS: 80053; 81000; 82570; 84156; 84550 ==

== ENCOUNTER → 2025-01-06 13:48 | Outpatient (BNVA) | payer MEDICAID, SELFPAY | PROVIDERS: PCP Family Medicine; Visit Provider Registered Nurse Neonatal Intensive Care | DX: J02.9 Acute pharyngitis, unspecified (principal) | CPT/HCPCS: 87880 ==

== ENCOUNTER → 2025-03-09 17:20 | Outpatient (BNVA) | payer MEDICAID, SELFPAY | PROVIDERS: PCP Family Medicine; Visit Provider Nurse Practitioner | DX: J02.9 Acute pharyngitis, unspecified (principal) | CPT/HCPCS: 87071; 87400; 87426; 87880 ==

== ENCOUNTER 2025-03-26 01:41 | Emergency (ER) | payer OTHER, SELFPAY ==
--- OUTSIDE RECORDS SUMMARY | 2024-10-31 08:00 | XMS_ITS ---
Author Organization [facility] Address [address] [place] [address] Care Team Providers Care Fiscal Manager Name Role Phone ( [facility] ), PHYSICIAN NOT IDENTIFIED Primary Care Provider DR. Carolyn Vyas Unavailable [phone] REASON FOR VISIT hole in wisdom tooth and swelling [place] Social History Sex Assigned At : Social History Observation Description Sex Assigned At Female Encounters Encounter Location Date Provider Diagnosis [facility] [address] [place] [address] 10/31/2024 Carolyn Hammer Plan Of Treatment No Information Progress Notes * Cynthia COLONB:2000 (24 yo F)Acc No.[id number]:10/31/2024 Patient: Clara Salgado Provider: Angeles Hammer DMD :2000 A ge:24 Y S ex:Female Date:10/31/2024 Phone: Address:[address] [place], [place] [id number] Pcp:PHYSICIAN NOT IDENTIFIED ( [facility] ) Subjective: * Chief Complaints: * h ole in wisdom tooth and swelling [place] * Electronic signature of DR. Carolyn Hammer on 03/26/2025 at 05:30 AM PATCHER B[employer]LING [employer]ALL Sign off status: Pending * Provider: Angeles Hammer DMD Date: 0 10/31/2024 Generated for Andrey templeton/Jeannine/Albinaitting on: 05/26/2024 05:30 AM P[employer]
[2025-03-26 01:48] VITALS: BP 112/76; PULSE 98; RESP 16; TEMP 36.7; O2SAT 97; BMI 25.6
--- NOTE | 2025-03-26 03:38 | XRR_ITS ---
PROCEDURE INFORMATION: Exam: XR Left Shoulder Exam date and time: 03/26/2025 3:43 AM Age: 24 years old Clinical indication: Pain; Shoulder; Left; Additional info: Shoulder trauma, posterior pain around scapular spine TECHNIQUE: Imaging protocol: Radiologic exam of the left shoulder. Views: 2 or more views. COMPARISON: CT cervical spin wo con* [id number] 08/01/2023 9:47 AM FINDINGS: Bones/joints: Normal. Soft tissues: Normal. XR/XR shoulder LT min 2V* [id number] IMPRESSION: No acute findings.
[2025-03-26 03:47] VITALS: BP 105/69; PULSE 67; O2SAT 99
--- NOTE | 2025-03-26 04:37 | W.ED.EXTPRO ---
HPI - Extremity Problem General: Chief complaint: Extremity Injury, Upper Stated complaint: Shoulder pain and down Time Seen by Provider: 03/26/25 03:28 History of Present Illness: Patient is a 24-year-old female with no past medical history who presents with acute onset left arm pain following an incident yesterday at 6:00 AM, in which she lost balance and nearly fell while supporting a 280-pound individual. Since the event, the patient has experienced persistent pain unrelieved by Tylenol or ibuprofen. Rest does not alleviate the pain, which recurs upon activity. No prior injuries or issues with the left arm are reported. Denies any numbness or tingling down her left lower extremity, did not hit her head, no loss of consciousness. Related Data Previous Rx's ?Medication ?Instructions ?Recorded ondansetron 8 mg disintegrating 8 mg PO Q8H PRN nausea and 03/02/25 tablet vomiting 5 days #15 tabs promethazine-DM 6.25 mg-15 mg/5 mL 5 ml PO Q4H cough #118 mL 03/09/25 oral syrup celecoxib 100 mg capsule (Celebrex) 100 mg PO BID #14 caps 03/26/25 cyclobenzaprine 10 mg tablet 10 mg PO TID PRN muscle spasm #15 03/26/25 tabs Allergies Allergy/AdvReac Type Severity Reaction Status Date / Time No Known Allergies Allergy Verified 03/17/25 13:57 Review of Systems General: Reports: 10 or more systems reviewed and unremarkable except in HPI and below Musc: Reports: joint pain PFSH ED PFSH: Medical History (Updated 03/26/25 @ 04:32 by Marc Guerrero DO) Incompetent cervix No pertinent past medical history Neghx: htn, dm, thyroid, dvt/pe No pertinent family history Rib pain on left side Surgical History Hx of section No pertinent past surgical history Family History Denies family history of Colon cancer Ovarian cancer Prostate cancer Diabetes Heart disease Breast cancer Hypertension Thyroid disease Stroke Social History Smoking and tobacco/nicotine status: never used tobacco/nicotine Second hand smoke exposure: No Alcohol intake: never Substance/Drug Use: never Physical Exam Narrative: EXAM NARRATIVE: Patient overall well-appearing, vital signs stable on arrival, no acute distress. Left shoulder with no obvious deformity, no skin tenting, no overlying bruising, erythema, warmth. Limited active range of motion in shoulder flexion and abduction past 90 degrees, pain elicited with left shoulder external rotation. Left upper extremity with soft compartments, 2+ radial pulse, full range of motion and no tenderness elicited at left wrist and elbow joints. Point tenderness to left scapular spine. Otherwise no traumatic injury seen Course Vital Signs: Vital signs: Vital Signs Temperature 98.0 F 03/26/25 01:48 Pulse Rate 76 03/26/25 04:42 Respiratory Rate 16 03/26/25 01:48 Blood Pressure 117/67 03/26/25 04:42 Pulse Oximetry 100 03/26/25 04:42 Oxygen Delivery Me thod Room Air 03/26/25 03:47 MDM - Extremity (Nontraumatic) Medical Decision Making -ddx: Rotator cuff sprain, tear, shoulder dislocation, humerus fracture, neurovascular injury - Patient clinically with a small degree of a rotator cuff tear, did elicit some new crepitus on exam and so x-ray obtained which was grossly negative for any humerus or clavicular fracture. She improved moderately with Toradol and Flexeril and was deemed stable for discharge with supportive care recommendations for rest, heating pads and ice packs, to avoid vigorous activity and lifting and given a prescription for Flexeril and Celebrex, work note provided to avoid heavy lifting over the next 2 weeks and advised her to follow-up with the PCP in a week's time if her pain was persistent for potential MRI at that point, discharged in stable condition with strict return precautions given. Lab Data Radiology Impressions Shoulder X-Ray 03/26/25 03:38 IMPRESSION: No acute findings. All radiology interpretation(s) finalized by discharge Discharge Plan Discharge Patient Disposition: Home Clinical Impression: Acute pain of left shoulder, Injury of left rotator cuff Condition: Stable Prescriptions: New cyclobenzaprine 10 mg tablet 10 mg PO TID PRN (Reason: muscle spasm) Qty: 15 0RF celecoxib [Celebrex] 100 mg capsule 100 mg PO BID Qty: 14 0RF No Action ondansetron 8 mg tablet,disintegrating 8 mg PO Q8H PRN (Reason: nausea and vomiting) 5 Days Qty: 15 0RF promethazine-DM 6.25-15 mg/5 mL syrup 5 ml PO Q4H Qty: 118 0RF Rx Instructions: Do not exceed more than 30ml/24hour period (6 doses) Discharge Orders: Discharge ED (Routine); Ordered 03/26/25 Ordered By: Marc Guerrero Referrals: Glenys Rosales DO [Primary Care Provider, HEAT TREATER APPRENTICE] Patient Instructions: Opioid Safety, Pain Management, Patient Portal & Debbie Instructions Activity Restrictions/Additional Instructions: You were seen after your recent left shoulder injury, you were evaluated with an x-ray which did not show any fracture or dislocation. You most likely have a small rotator cuff sprain causing your pain. The treatment for this is rest and to see if it heals on its own, for this, keep using the arm and doing stretches at the shoulder but avoid any heavy lifting over the next 2 weeks. Alternate ice packs and heating pads 20 minutes at a time every few hours to help with the pain and swelling. For stronger anti-inflammatory effects, use the Celebrex 100 mg every 12 hours as needed, this is in place of ibuprofen so do not take that with this medication. You can still alternate this with Tylenol 650 mg every 6 hours as needed. For any cramps or muscle spasms that develop, use of Flexeril, 10 mg every 8 hours as needed. If the pain is persistent or worsening over the next week, make an appointment with your primary care physician to discuss an MRI and reevaluation of the injury. Return to the ED with severe worsening of the pain, swelling or redness of the shoulder, inability to move or feel your arm, any other emergent concerns Stand Alone Forms: Work/School Release Print Language: Ukrainian Coding Level of Care Code ED Store Cashier for Wanda Lawton
[2025-03-26 04:42] VITALS: BP 117/67; PULSE 76; O2SAT 100
--- OUTSIDE RECORDS SUMMARY | 2025-03-26 05:30 | XMS_ITS | Clinical Summary ---
Author Organization [facility] Administrative Offices Address [address] [place] [address] Care Team Providers Care Vp Compliance Name Role Phone Glenys Rosales DO Primary Care Provider [phone] Allergies No known active allergies Medications promethazine (PHENERGAN) 25 mg tablet Take 1 Tablet (25 mg) by mouth every 6 hours as needed for Nausea, Emesis, Nausea/Emes is or Other (See Comment) (Abdominal/ pelvic pain). 20 Tablet 03/03/2025 Active Active Problems Problem Noted Date Diagnosed Date Vaginal discharge during in first trim jose 11/22/2023 Uterine cramping 11/22/2023 Less than 8 weeks gestation of 024 Bacterial vaginosis 10/02/2023 Acute cystitis with hematuria 10/02/2023 Spasm of muscle of lower back 07/03/2022 Encounters Date Type Department Care Team Description 03/05/2025 External Device Data [facility] ABSTRACTION Provider, Abstract 03/04/2025 External Device Data [facility] ABSTRACTION Provider, Abstract 03/04/2025 External Device Data [facility] ABSTRACTION Provider, Abstract 03/04/2025 External Device Data [facility] ABSTRACTION Provider, Abstract 03/03/2025 10:53 AM CDT - 03/03/2025 1:06 PM CDT Emergency [facility] Emergency Medicine [address] [place] [id number] Clay Rogers MD Ovarian cyst, right (Primary Dx) Discharge Disposition: Home or Self Care 03/03/2025 Travel from Last 3 Months Social History Tobacco Use Types Packs/Day Years Used Date Smoking Tobacco: Never Passive Smoke Exposure: Never Smokeless Tobacco: Never Tobacco Cessation:Counseling Given: Not Answered Alcohol Use Standard Drinks/Week Comments Not Currently 0 (1 standard drink = 0.6 oz pur e alcohol) Food Insecurity Answer Date Recorded Do you find you are eating l ess than you should because you can t pay for food? No 03/03/2025 Transportation Needs Answer Date Record ed Have you gone without health care because you didn t have a way to get there? Or worry about transportation for future doctor visits, medicinal plant picker medication, etc.? No 2024 Housing Stability Answer Date Recorded Do you worry you won t have a steady place to sleep or struggle to pay rent or mortgage? No 03/03/2025 Utility Needs Answer Date Recorded Do you have difficulty payin g for utility costs (electric, water or gas bills)? No 03/03/2025 Medication Needs Answer Date Recorded Have you skipped taking medi cation due to cost or worry you can t afford new medications? No 03/03/2025 Feeling Safe Answer Date Recorded Are you in a relationship wi th someone who hurts you emotionally and/or physically? No 03/03/2025 Comments No Sex and Gender Information Value Date Recorded Sex Assigned at Not on file Legal Sex Female 12:16 PM CDT Gender Identity Not on file Sexual Orientation Not on file Last Filed Vital Signs Vital Sign Reading Time Taken Comments Blood Pressure 103/63 03/03/2025 1:00 PM CDT Pulse 83 03/03/2025 1:00 PM CDT Temperature 36.6 C (97.8 F) 03/03/2025 10:59 AM CDT Respiratory Rate 16 03/03/2025 1:00 PM CDT Oxygen Saturation 100% 03/03/2025 1:00 PM CDT Inhaled Oxygen Concentration - - Weight 64.4 kg (142 lb) 03/03/2025 10:59 AM CDT Height 157.5 cm (5' 2 ) 03/03/2025 10:59 AM CDT Body Mass Index 25.97 03/03/2025 10:59 AM CDT Plan of Treatment Health Maintenance Due Date Last Done Comments HPV VACCINES (1 - 3-dose series) 08/05/2015 DTAP/TDAP/TD VACCINES (1 - Tdap) 08/05/2019 HEPATITIS B VACCINES (1 of 3 - 19+ 3-dose series) 08/05/2019 CERVICAL CANCER SCREENING 2021 HPV/Cotest (21-29) 2021 PAP SMEAR 2021 INFLUENZA VACCINE (#1) 2024 CHLAMYDIA SCREENING (ANNUAL) 11-24 YEARS Discontinued 10/02/2023, 02/16/2022 Procedures Procedure Name Priority Date/Time Associated Diagnosis Comments CT ABDOMEN PELVIS W CONTRAST Stat 03/03/2025 12:43 PM CDT URINALYSIS MICROSCOPY ONLY Stat 03/03/2025 11:23 AM CDT HCG QUALITATIVE, URINE Stat 11:23 AM CDT DRUG SCREEN, URINE Stat 03/03/2025 11 :23 AM CDT URINALYSIS W/REFLEX MICROSCOPIC Stat 03/03/2025 11:23 AM CDT MAGNESIUM LEVEL Stat 03/03/2025 11:02 AM CDT C-REACTIVE PROTEIN Stat 03/03/2025 11 :02 AM CDT LACTIC ACID Stat 03/03/2025 11:02 AM CDT LIPASE Stat 03/03/2025 11:02 AM CDT COMPREHENSIVE METABOLIC PANEL Stat 03/03/2025 11:02 AM CDT CBC WITH DIFFERENTIAL Stat 03/03/2025 11:02 AM CDT GC/CHLAMYDIA, UROGENITAL Stat 10/02/2023 3:25 PM CDT from Last 3 Months or Most Recently Relevant to Health Maintenance Results * CT ABDOMEN PELVIS W CONTRAST (03/03/2025 12:43 PM CDT) Anatomical Region Laterality Modality Abdomen Computed Tomogra phy 03/03/2025 11:5 9 AM CDT Impressions 03/03/2025 12:49 PM CDT IMPRESSION: Please see below. Exam: CT ABDOMEN PELVIS W CONTRAST Date/Time of Exam: 03/03/2025 12:43 PM Reason For Exam: RLQ abdominal pain. Diagnosis: See Reason for Exam. Technique: 5 mm volumetric acquisition with oral and intravenous contrast. Contrast: IOPAMIDOL 61 % INTRAVENOUS SOLUTION (SINGLE USE VIAL) Given:95 mL Comparison: None Findings: Partially visualized chest: No acute abnormality. Liver: Normal. Gallbladder: Normal. Pancreas: Normal. Spleen: Mild splenomegaly. Adrenal glands: Normal. Kidneys and ureters: Asymmetric multifocal asymmetric right renal parenchymal defect/cortical scarring present Compared to the left. Right renal cortical thinning/volume Urinary bladder: Unremarkable. Reproductive organs: Incidental note of asymmetric 2.4 x 2.2 cm right ovarian follicular cyst. GI tract: No intestinal obstruction. No bowel wall abnormality. Appendix: The appendix specifically is within normal limits. Retrocecal in location. Free fluid: Trace free fluid within the posterior cul-de-sac presumed physiologic. Negative for free air. Lymph nodes: No lymphadenopathy. Vasculature: Unremarkable. Body wall: Unremarkable. Osseous structures: No acute osseous abnormality. No suspicious lesions. IMPRESSION: 1. Incidental note of 2.4 cm right ovarian follicular cyst with trace free fluid within the posterior cul-de-sac. Further assessment with pelvic ultrasound could be performed as clinically warranted. Otherwise negative for CT evidence of acute intra-abdominal process. 2. Multifocal asymmetric right renal parenchymal defect/cortical scarring. 3. Mild splenomegaly. Narrative Procedure Note Giselle Hermosillo MD - 03/03/2025 IMPRESSION: Please see below. Exam: CT ABDOMEN PELVIS W CONTRAST Date/Time of Exam: 03/03/2025 12:43 PM Reason For Exam: RLQ abdominal pain. Diagnosis: See Reason for Exam. Technique: 5 mm volumetric acquisition with oral and intravenous contrast. Contrast: IOPAMIDOL 61 % INTRAVENOUS SOLUTION (SINGLE USE VIAL) Given:95 mL Comparison: None Findings: Partially visualized chest: No acute abnormality. Liver: Normal. Gallbladder: Normal. Pancreas: Normal. Spleen: Mild splenomegaly. Adrenal glands: Normal. Kidneys and ureters: Asymmetric multifocal asymmetric right renal parenchymal defect/cortical scarring present Compared to the left. Right renal cortical thinning/volume Urinary bladder: Unremarkable. Reproductive organs: Incidental note of asymmetric 2.4 x 2.2 cm right ovarian follicular cyst. GI tract: No intestinal obstruction. No bowel wall abnormality. Appendix: The appendix specifically is within normal limits. Retrocecal in location. Free fluid: Trace free fluid within the posterior cul-de-sac presumed physiologic. Negative for free air. Lymph nodes: No lymphadenopathy. Vasculature: Unremarkable. Body wall: Unremarkable. Osseous structures: No acute osseous abnormality. No suspicious lesions. IMPRESSION: 1. Incidental note of 2.4 cm right ovarian follicular cyst with trace free fluid within the posterior cul-de-sac. Further assessment with pelvic ultrasound could be performed as clinically warranted. Otherwise negative for CT evidence of acute intra-abdominal process. 2. Multifocal asymmetric right renal parenchymal defect/cortical scarring. 3. Mild splenomegaly. Clay Rogers MD CT ORDERABLES Final Resu lt * (ABNORMAL) URINALYSIS MICROSCOPY ONLY (03/03/2025 11:23 AM CDT) WBC UA 3-5(A) 0 - 2 /hpf 03/03/2025 11:37 AM CDT [facility] RBC UA 3-5(A) 0 - 2 /hpf 03/03/2025 11:37 AM CDT [facility] BACTERIA UA 1+(A) Negative /hpf 03/03/2025 11:37 AM CDT [facility] EPITHELIAL CELLS, URINE 0-5 0 - 5 /hpf 03/03/2025 11:37 AM CDT [facility] Urine URINE SPECIMEN OBTAINED BY CLEAN CATCH PROCEDURE / Unknown Collection / Unknown 03/03/2025 11:23 AM CDT 03/03/2025 11:25 AM CDT Clay Rogers MD URINE ORDERABLES Final Res ult [facility] CLIA # [id number] [address] [place] [address] * (ABNORMAL) DRUG SCREEN, URINE (03/03/2025 11:23 AM CDT) CANNABINOIDS QUAL, URINE Negative Negative 03/03/2025 11:44 AM CDT [facility] PCP QUAL, URINE Negative Negative 11:44 AM T [facility] COCAINE QUAL URINE Negative Negative 2024 11:44 AM T [facility] METHAMPHETAMINE QUAL, URINE Negative Negative 03/03/2025 11:44 AM T [facility] OPIATE QUAL, URINE Negative Negative 2024 11:44 AM T [facility] AMPHETAMINE QUAL, URINE Negative Negative 03/03/2025 11:44 AM T [facility] BENZODIAZEPINE QUAL, URINE Negative Negative 03/03/2025 11:44 AM [facility] TRICYCLICS QUAL, URINE Negative Negative 03/03/2025 11:44 AM T [facility] METHADONE QUAL, URINE Negative Negative 03/03/2025 11:44 AM T [facility] BARBITURATE QUAL, URINE Presumptive Positive(A) Negative 03/03/2025 11:44 AM T [facility] OXYCODONE QUAL, URINE Negative Negative 03/03/2025 11:44 AM [facility] Urine URINE SPECIMEN OBTAINED BY CLEAN CATCH PROCEDURE / Unknown Collection / Unknown 03/03/2025 11:23 AM CDT 03/03/2025 11:25 AM T Narrative [facility] - 03/03/2025 11:44 AM T This test is a qualitative screen. The presumptive positive results should not be used for legal purposes. If confirmation of results is desired, the lab must be contacted without delay. Drug Screening Threshold Amphetamines 500 ng/mL Barbiturates 200 ng/mL Benzodiazepines 150 ng/mL Cocaine Metabolites 150 ng/mL Methamphetamine 500 ng/mL Methadone 200 ng/mL Opiates 100 ng/mL Oxycodone 100 ng/mL Phencyclidine 25 ng/mL THC Cannabinoids 50 ng/mL Tricyclic Antidepressants 300 ng/mL us Clay Rogers MD URINE ORDERABLES Final Res ult [facility] CLIA # [id number] [address] [address] * (ABNORMAL) URINALYSIS WITH REFLEX MICROSCOPIC (03/03/2025 11:23 AM CDT) COLOR UA Yellow Pale to Dark Yellow 03/03/2025 11:37 AM T [facility] CLARITY UA Clear Clear 03/03/2025 11:37 AM T [facility] SPECIFIC GRAVITY UA 1.010 1.003 - 1.035 03/03/2025 11:37 AM T [facility] PH UA 7.0 5.0 - 8.0 03/03/2025 11:37 AM [facility] LEUKOCYTE ESTERASE UA 1+(A) Negative 03/03/2025 11:37 AM [facility] NITRITE UA Negative Negative 03/03/2025 11:37 AM [facility] PROTEIN UA Trace(A) Negative 03/03/2025 11:37 AM [facility] GLUCOSE UA Negative Negative 03/03/2025 11:37 AM [facility] KETONES UA Negative Negative 03/03/2025 11:37 AM [facility] UROBILINOGEN UA 0.2 <2.0 mg/dL 11:37 AM [facility] BILIRUBIN UA Negative Negative 03/03/2025 11:37 AM [facility] BLOOD UA 3+(A) Negative 03/03/2025 11:37 AM [facility] Urine URINE SPECIMEN OBTAINED BY CLEAN CATCH PROCEDURE / Unknown Collection / Unknown 03/03/2025 11:23 AM CDT 03/03/2025 11:25 AM CDT us Clay Rogers MD URINE ORDERABLES Final Res ult [facility] CLIA # [id number] [address] [address] * HCG QUALITATIVE, URINE (03/03/2025 11:23 AM CDT) HCG QUAL URINE Negative Negative 03/03/2025 11:33 AM CDT [facility] COLOR UA Yellow Pale to Dark Yellow 03/03/2025 11:33 AM CDT [facility] CLARITY UA Clear Clear 03/03/2025 11:33 AM CDT [facility] Urine URINE SPECIMEN OBTAINED BY CLEAN CATCH PROCEDURE / Unknown Collection / Unknown 03/03/2025 11:23 AM CDT 03/03/2025 11:25 AM CDT us Clay Rogers MD URINE ORDERABLES Final Res ult Performing Organization Address [facility]/ZIP Co de Phone Number [facility] CLIA # [id number] [address] [place] [address] * LACTIC ACID (03/03/2025 11:02 AM CDT) LACTIC ACID 1.9 <=2.0 mmol/L 03/03/2025 11:33 AM CDT [facility] Blood BLOOD SPECIMEN / Unknown Venipuncture / Unknown 03/03/2025 11:02 AM CDT 03/03/2025 11:17 AM CDT us Clay Rogers MD CHEMISTRY ORDERABLES Final Result Performing Organization Address City/[facility]/ZIP Co de Phone Number [facility] CLIA # [id number] [address] [place] [address] * (ABNORMAL) CBC WITH DIFFERENTIAL (03/03/2025 11:02 AM CDT) WBC 6.7 4.0 - 10.0 K/uL 03/03/2025 11:21 AM CDT [facility] RBC 4.66 3.93 - 5.22 M/uL 03/03/2025 11:21 AM CDT [facility] HEMOGLOBIN 12.7 11.2 - 15.7 g/dL 03/03/2025 11:21 AM [facility] HEMATOCRIT 37.1 34.1 - 44.9 % 03/03/2025 11:21 AM [facility] MCV 79.6 79.4 - 94.8 fL 03/03/2025 11:21 AM [facility] MCH 27.3 25.6 - 32.2 pg 03/03/2025 11:21 AM [facility] MCHC 34.2 32.2 - 35.5 g/dL 03/03/2025 11:21 AM [facility] RDW 13.4 11.0 - 14.5 % 03/03/2025 11:21 AM [facility] RDW-STDEV 38.5 36.9 - 56.9 fL 03/03/2025 11:21 AM [facility] PLATELETS 368(H) 163 - 337 K/uL 03/03/2025 11:21 AM [facility] MPV 10.9 10.0 - 14.8 fL 03/03/2025 11:21 AM [facility] NEUTROPHILS 68 34 - 71 % 03/03/2025 11:21 AM [facility] LYMPHOCYTES 22 19 - 52 % 03/03/2025 11:21 AM [facility] MONOCYTES 7 5 - 13 % 03/03/2025 11:21 AM [facility] EOSINOPHILS 3 1 - 6 % 03/03/2025 11:21 AM [facility] BASOPHILS 1 0 - 1 % 03/03/2025 11:21 AM [facility] IMMATURE GRANULOCYTES 0 % 03/03/2025 11:21 AM [facility] NEUTROPHIL ABSOLUTE 4.52 1.56 - 6.13 K/uL 03/03/2025 11:21 AM [facility] LYMPHOCYTE ABSOLUTE 1.46 1.20 - 3.40 K/uL 03/03/2025 11:21 AM [facility] MONOCYTE ABSOLUTE 0.47(H) 0.24 - 0.36 K/uL 03/03/2025 11:21 AM CDT [facility] EOSINOPHIL ABSOLUTE 0.19 0.04 - 0.36 K/uL 03/03/2025 11:21 AM CDT [facility] BASOPHILS ABSOLUTE 0.04 0.01 - 0.08 K/uL 03/03/2025 11:21 AM CDT [facility] IMMATURE GRANULOCYTES ABSOLUTE 0.02 K/uL 03/03/2025 11:21 AM CDT [facility] Blood Venipuncture / Unknown 03/03/2025 11:02 AM CDT 03/03/2025 11:17 AM CDT us Clay Rogers MD HEMATOLOGY ORDERABLES Molly l Result [facility] CLIA # [id number] [address] [place] [address] [id number] * C-REACTIVE PROTEIN (03/03/2025 11:02 AM CDT) CRP 4.1 <5.0 mg/L 03/03/2025 11:33 AM CDT [facility] Blood Venipuncture / Unknown 03/03/2025 11:02 AM CDT 03/03/2025 11:17 AM CDT us Clay Rogers MD CHEMISTRY ORDERABLES Final Result [facility] CLIA # [id number] [address] [place] [address] * MAGNESIUM LEVEL (03/03/2025 11:02 AM CDT) MAGNESIUM 2.0 1.6 - 2.6 mg/dL 03/03/2025 11:33 AM CDT [facility] Blood Venipuncture / Unknown 03/03/2025 11:02 AM CDT 03/03/2025 11:17 AM CDT us Clay Rogers MD CHEMISTRY ORDERABLES Final Result [facility] CLIA # [id number] [address] [place] [id number] * LIPASE (03/03/2025 11:02 AM CDT) LIPASE 39 13 - 60 U/L 03/03/2025 11:33 AM T [facility] Blood Venipuncture / Unknown 03/03/2025 11:02 AM CDT 03/03/2025 11:17 AM CDT us Clay Rogers MD CHEMISTRY ORDERABLES Final Result Performing Organization Address City/[facility]/ZIP Co de Phone Number [facility] CLIA # [id number] [address] [place] [address] [phone] * (ABNORMAL) COMPREHENSIVE METABOLIC PANEL (03/03/2025 11:02 AM CDT) SODIUM 137 136 - 145 mmol/L 03/03/2025 11:33 AM [facility] POTASSIUM 3.5 3.5 - 5.1 mmol/L 03/03/2025 11:33 AM [facility] CHLORIDE 102 98 - 107 mmol/L 03/03/2025 11:33 AM [facility] CO2 26 22 - 29 mmol/L 03/03/2025 11:33 AM [facility] CALCIUM 8.9 8.6 - 10.0 mg/dL 03/03/2025 11:33 AM [facility] BUN 9 6 - 20 mg/dL 03/03/2025 11:33 AM [facility] CREATININE 0.82 0.51 - 0.95 mg/dL 03/03/2025 11:33 AM [facility] GLUCOSE 109(H) 74 - 99 mg/dL 03/03/2025 11:33 AM [facility] TOTAL PROTEIN 7.0 6.6 - 8.7 g/dL 03/03/2025 11:33 AM [facility] ALBUMIN 4.0 3.5 - 5.2 g/dL 03/03/2025 11:33 AM [facility] BILIRUBIN TOTAL 0.3 0.0 - 1.2 mg/dL 03/03/2025 11:33 AM [facility] ALKALINE PHOSPHATASE 103 35 - 104 U/L 03/03/2025 11:33 AM [facility] AST 31 0 - 35 U/L 03/03/2025 11:33 AM [facility] ALT 50(H) 0 - 35 U/L 03/03/2025 11:33 AM [facility] GFR >60 >=60 mL/min/1.7 3 sq meter 03/03/2025 11:33 AM [facility] Comment:eGFR calculated with 2020 CKD-EPI equation. Vegetarian diet, extremely high or low muscle mass, and may affect results. Cystatin C with Glomerular Filtration Rate is a suitable alternative for these patients. ANION GAP 9 5 - 20 mmol/L 03/03/2025 11:33 AM [facility] Blood Venipuncture / Unknown 03/03/2025 11:02 AM CDT 03/03/2025 11:17 AM CDT Clay Rogers MD CHEMISTRY ORDERABLES Final Result [facility] # [id number] [address] [place] [address] * GC/CHLAMYDIA, UROGENITAL (10/02/2023 3:25 PM CDT) Pathologist [facility] CHLAMYDIA DNA AMPLIFICATION NOT DETECTED Not Detected 10/03/2023 8:25 PM CDT [facility] GC DNA AMPLIFICATION NOT DETECTED Not Detected 10/03/2023 8:25 PM CDT [facility] Urine (Urine, 1st catch) Collection / Unknown 10/02/2023 3:25 PM CDT 10/02/2023 3:28 PM CDT Narrative [facility] - 10/03/2023 8:25 PM CDT Results should not be used for the evaluation of suspected sexual abuse or for other medico-legal indications. The only legally accepted results are from culture. Results cannot be used to assess therapeutic success or failure since nucleic acids may persist following antimicrobial therapy. us Fay De Paz MD MICROBIOLOGY - GENERAL ORDERABL ES Final Result [facility] CLIA # [id number] [address] [place] [address] from Last 3 Months or Most Recently Relevant to Health Maintenance Insurance [facility] [id number] [employer] Care Teams Vp Compliance Relationship Specialty Start Date End Date Glenys Rosales DO [address] [place] [phone] PCP - General Family Practice 11/22/23
--- OUTSIDE RECORDS SUMMARY | 2025-03-26 05:30 | XMS_ITS | Patient Health Record ---
Author Organization [facility] Address [address] [place] [address] Care Team Providers Care Dietary Director Name Role Phone ( [facility] ), PHYSICIAN NOT IDENTIFIED Primary Care Provider Unavailable DR. Carolyn Hammer Unavailable [phone] Reason For Referral No Information Social History Sex Assigned At : Social History Observation Description Sex Assigned At Female Plan Of Treatment No Information Insurance Providers Payer Name Payer Address Payer Phone Subscriber Number Group Number Insured Name Patient Relationship to Insured Coverage Start Date Coverage End Date [facility] are [facility] Plan [facility] [address] [place] [phone] [id number] Clara Garza Self - patient is the insured
== END 2025-03-26 04:43 | disposition home or self-care (01) ==
PROVIDERS: Emergency Provider Student in an Organized Health Care Education/Training Program; PCP Family Medicine
DX: S46.002A Unspecified injury of muscle(s) and tendon(s) of the rotator cuff of left shoulder, initial encounter (principal); W19.XXXA Unspecified fall, initial encounter
CPT/HCPCS: 73030; 96372; 99284; J1885; J9999

== ENCOUNTER 2025-03-31 12:49 | Emergency (ER) | payer OTHER, SELFPAY ==
--- NOTE | 2025-03-31 12:50 | XRR_ITS ---
PROCEDURE INFORMATION: Exam: XR Left Shoulder Exam date and time: 03/31/2025 2:10 PM Age: 24 years old Clinical indication: Injury or trauma; Work related; Sprain or strain; Left; Injury details: Hurt lt shoulder catching a falling patient; Additional info: Pain TECHNIQUE: Imaging protocol: Radiologic exam of the left shoulder. Views: 2 or more views. COMPARISON: CR (CHEST, ) 03/26/2025 3:43 AM FINDINGS: Bones/joints: Normal. Soft tissues: Normal. XR/XR shoulder LT min 2V* [id number] IMPRESSION: No acute findings.
[2025-03-31 12:57] VITALS: BP 113/72; PULSE 80; RESP 17; TEMP 36.8; O2SAT 97; BMI 25.2
--- OUTSIDE RECORDS SUMMARY | 2025-03-31 13:11 | XMS_ITS | Clinical Summary ---
Author Organization [facility] Administrative Offices Address [address] [place] [address] Care Team Providers Care Gas Leak Tester Name Role Phone Glenys Rosales DO Primary Care Provider [phone] Allergies No known active allergies Medications promethazine [...] CDT - 03/03/2025 1:06 PM CDT Emergency [facility] Emergency Medicine [address] [place] [id number] Clay Rogers MD Ovarian cyst, right (Primary [...] worry about transportation for future doctor visits, knot picker cloth medication, etc.? No 2024 Housing Stability Answer [...] - 2 /hpf 03/03/2025 11:37 AM CDT [facility] RBC UA 3-5(A) 0 - 2 /hpf 03/03/2025 11:37 AM CDT [facility] BACTERIA UA 1+(A) Negative /hpf 03/03/2025 11:37 AM CDT [facility] EPITHELIAL CELLS, URINE 0-5 0 - 5 /hpf 03/03/2025 11:37 AM CDT [facility] Urine URINE SPECIMEN OBTAINED BY CLEAN CATCH PROCEDURE / Unknown Collection / Unknown 03/03/2025 11:23 AM CDT 03/03/2025 11:25 AM CDT Clay Rogers MD URINE ORDERABLES Final Res ult [facility] CLIA # [id number] [address] [place] [phone] * (ABNORMAL) DRUG SCREEN, URINE (03/03/2025 11:23 AM CDT) CANNABINOIDS QUAL, URINE Negative Negative 03/03/2025 11:44 AM CDT [facility] PCP QUAL, URINE Negative Negative 11:44 AM T [facility] COCAINE QUAL URINE Negative Negative 2024 11:44 AM T [facility] METHAMPHETAMINE QUAL, URINE Negative Negative 03/03/2025 11:44 AM T [facility] OPIATE QUAL, URINE Negative Negative 2024 11:44 AM T [facility] AMPHETAMINE QUAL, URINE Negative Negative 03/03/2025 11:44 AM T [facility] BENZODIAZEPINE QUAL, URINE Negative Negative 03/03/2025 11:44 AM [facility] TRICYCLICS QUAL, URINE Negative Negative 03/03/2025 11:44 AM T [facility] METHADONE QUAL, URINE Negative Negative 03/03/2025 11:44 AM T [facility] BARBITURATE QUAL, URINE Presumptive Positive(A) Negative 03/03/2025 11:44 AM T [facility] OXYCODONE QUAL, URINE Negative Negative 03/03/2025 11:44 AM [facility] Urine URINE SPECIMEN OBTAINED BY CLEAN CATCH PROCEDURE / Unknown Collection / Unknown 03/03/2025 11:23 AM CDT 03/03/2025 11:25 AM T Narrative [facility] - 03/03/2025 11:44 AM T This test [...] Rogers MD URINE ORDERABLES Final Res ult [facility] CLIA # [id number] [address] [address] * (ABNORMAL) URINALYSIS WITH REFLEX MICROSCOPIC (03/03/2025 11:23 AM CDT) COLOR UA Yellow Pale to Dark Yellow 03/03/2025 11:37 AM T [facility] CLARITY UA Clear Clear 03/03/2025 11:37 AM T [facility] SPECIFIC GRAVITY UA 1.010 1.003 - 1.035 03/03/2025 11:37 AM T [facility] PH UA 7.0 5.0 - 8.0 03/03/2025 11:37 AM [facility] LEUKOCYTE ESTERASE UA 1+(A) Negative 03/03/2025 11:37 AM [facility] NITRITE UA Negative Negative 03/03/2025 11:37 AM [facility] PROTEIN UA Trace(A) Negative 03/03/2025 11:37 AM [facility] GLUCOSE UA Negative Negative 03/03/2025 11:37 AM [facility] KETONES UA Negative Negative 03/03/2025 11:37 AM [facility] UROBILINOGEN UA 0.2 <2.0 mg/dL 11:37 AM [facility] BILIRUBIN UA Negative Negative 03/03/2025 11:37 AM [facility] BLOOD UA 3+(A) Negative 03/03/2025 11:37 AM [facility] Urine URINE SPECIMEN OBTAINED BY CLEAN CATCH PROCEDURE / Unknown Collection / Unknown 03/03/2025 11:23 AM CDT 03/03/2025 11:25 AM CDT us Clay Rogers MD URINE ORDERABLES Final Res ult [facility] CLIA # [id number] [address] [address] * HCG QUALITATIVE, URINE (03/03/2025 11:23 AM CDT) HCG QUAL URINE Negative Negative 03/03/2025 11:33 AM CDT [facility] COLOR UA Yellow Pale to Dark Yellow 03/03/2025 11:33 AM CDT [facility] CLARITY UA Clear Clear 03/03/2025 11:33 AM CDT [facility] Urine URINE SPECIMEN OBTAINED BY CLEAN CATCH PROCEDURE / Unknown Collection / Unknown 03/03/2025 11:23 AM CDT 03/03/2025 11:25 AM CDT us Clay Rogers MD URINE ORDERABLES Final Res ult Performing Organization Address [facility]/ZIP Co de Phone Number [facility] CLIA # [id number] [address] [place] [phone] * LACTIC ACID (03/03/2025 11:02 AM CDT) LACTIC ACID 1.9 <=2.0 mmol/L 03/03/2025 11:33 AM CDT [facility] Blood BLOOD SPECIMEN / Unknown Venipuncture / Unknown 03/03/2025 11:02 AM CDT 03/03/2025 11:17 AM CDT us Clay Rogers MD CHEMISTRY ORDERABLES Final Result Performing Organization Address City/[facility]/ZIP Co de Phone Number [facility] CLIA # [id number] [address] [place] [phone] * (ABNORMAL) CBC WITH DIFFERENTIAL (03/03/2025 11:02 AM CDT) WBC 6.7 4.0 - 10.0 K/uL 03/03/2025 11:21 AM CDT [facility] RBC 4.66 3.93 - 5.22 M/uL 03/03/2025 11:21 AM CDT [facility] HEMOGLOBIN 12.7 11.2 - 15.7 g/dL 03/03/2025 11:21 AM [facility] HEMATOCRIT 37.1 34.1 - 44.9 % 03/03/2025 11:21 AM [facility] MCV 79.6 79.4 - 94.8 fL 03/03/2025 11:21 AM [facility] MCH 27.3 25.6 - 32.2 pg 03/03/2025 11:21 AM [facility] MCHC 34.2 32.2 - 35.5 g/dL 03/03/2025 11:21 AM [facility] RDW 13.4 11.0 - 14.5 % 03/03/2025 11:21 AM [facility] RDW-STDEV 38.5 36.9 - 56.9 fL 03/03/2025 11:21 AM [facility] PLATELETS 368(H) 163 - 337 K/uL 03/03/2025 11:21 AM [facility] MPV 10.9 10.0 - 14.8 fL 03/03/2025 11:21 AM [facility] NEUTROPHILS 68 34 - 71 % 03/03/2025 11:21 AM [facility] LYMPHOCYTES 22 19 - 52 % 03/03/2025 11:21 AM [facility] MONOCYTES 7 5 - 13 % 03/03/2025 11:21 AM [facility] EOSINOPHILS 3 1 - 6 % 03/03/2025 11:21 AM [facility] BASOPHILS 1 0 - 1 % 03/03/2025 11:21 AM [facility] IMMATURE GRANULOCYTES 0 % 03/03/2025 11:21 AM [facility] NEUTROPHIL ABSOLUTE 4.52 1.56 - 6.13 K/uL 03/03/2025 11:21 AM [facility] LYMPHOCYTE ABSOLUTE 1.46 1.20 - 3.40 K/uL 03/03/2025 11:21 AM [facility] MONOCYTE ABSOLUTE 0.47(H) 0.24 - 0.36 K/uL 03/03/2025 11:21 AM CDT [facility] EOSINOPHIL ABSOLUTE 0.19 0.04 - 0.36 K/uL 03/03/2025 11:21 AM CDT [facility] BASOPHILS ABSOLUTE 0.04 0.01 - 0.08 K/uL 03/03/2025 11:21 AM CDT [facility] IMMATURE GRANULOCYTES ABSOLUTE 0.02 K/uL 03/03/2025 11:21 AM CDT [facility] Blood Venipuncture / Unknown 03/03/2025 11:02 AM CDT 03/03/2025 11:17 AM CDT us Clay Rogers MD HEMATOLOGY ORDERABLES Molly l Result [facility] CLIA # [id number] [address] [place] [phone] * C-REACTIVE PROTEIN (03/03/2025 11:02 AM CDT) CRP 4.1 <5.0 mg/L 03/03/2025 11:33 AM CDT [facility] Blood Venipuncture / Unknown 03/03/2025 11:02 AM CDT 03/03/2025 11:17 AM CDT us Clay Rogers MD CHEMISTRY ORDERABLES Final Result [facility] CLIA # [id number] [address] [place] [address] * MAGNESIUM LEVEL (03/03/2025 11:02 AM CDT) MAGNESIUM 2.0 1.6 - 2.6 mg/dL 03/03/2025 11:33 AM CDT [facility] Blood Venipuncture / Unknown 03/03/2025 11:02 AM CDT 03/03/2025 11:17 AM CDT us Clay Rogers MD CHEMISTRY ORDERABLES Final Result [facility] CLIA # [id number] [address] [place] [address] [phone] * LIPASE (03/03/2025 11:02 AM CDT) LIPASE 39 13 - 60 U/L 03/03/2025 11:33 AM T [facility] Blood Venipuncture / Unknown 03/03/2025 11:02 AM CDT 03/03/2025 11:17 AM CDT us Clay Rogers MD CHEMISTRY ORDERABLES Final Result Performing Organization Address City/[facility]/ZIP Co de Phone Number [facility] CLIA # [id number] [address] [place] [address] [phone] * (ABNORMAL) COMPREHENSIVE METABOLIC PANEL (03/03/2025 11:02 AM CDT) SODIUM 137 136 - 145 mmol/L 03/03/2025 11:33 AM [facility] POTASSIUM 3.5 3.5 - 5.1 mmol/L 03/03/2025 11:33 AM [facility] CHLORIDE 102 98 - 107 mmol/L 03/03/2025 11:33 AM [facility] CO2 26 22 - 29 mmol/L 03/03/2025 11:33 AM [facility] CALCIUM 8.9 8.6 - 10.0 mg/dL 03/03/2025 11:33 AM [facility] BUN 9 6 - 20 mg/dL 03/03/2025 11:33 AM [facility] CREATININE 0.82 0.51 - 0.95 mg/dL 03/03/2025 11:33 AM [facility] GLUCOSE 109(H) 74 - 99 mg/dL 03/03/2025 11:33 AM [facility] TOTAL PROTEIN 7.0 6.6 - 8.7 g/dL 03/03/2025 11:33 AM [facility] ALBUMIN 4.0 3.5 - 5.2 g/dL 03/03/2025 11:33 AM [facility] BILIRUBIN TOTAL 0.3 0.0 - 1.2 mg/dL 03/03/2025 11:33 AM [facility] ALKALINE PHOSPHATASE 103 35 - 104 U/L 03/03/2025 11:33 AM [facility] AST 31 0 - 35 U/L 03/03/2025 11:33 AM [facility] ALT 50(H) 0 - 35 U/L 03/03/2025 11:33 AM [facility] GFR >60 >=60 mL/min/1.7 3 sq meter 03/03/2025 11:33 AM [facility] Comment:eGFR calculated with 2020 CKD-EPI equation. Vegetarian diet, extremely high or low muscle mass, and may affect results. Cystatin C with Glomerular Filtration Rate is a suitable alternative for these patients. ANION GAP 9 5 - 20 mmol/L 03/03/2025 11:33 AM [facility] Blood Venipuncture / Unknown 03/03/2025 11:02 AM CDT 03/03/2025 11:17 AM CDT Clay Rogers MD CHEMISTRY ORDERABLES Final Result [id number] [address] [place] [phone] * GC/CHLAMYDIA, UROGENITAL (10/02/2023 3:25 PM CDT) Pathologist [facility] CHLAMYDIA DNA AMPLIFICATION NOT DETECTED Not Detected 10/03/2023 8:25 PM CDT [facility] GC DNA AMPLIFICATION NOT DETECTED Not Detected 10/03/2023 8:[address] [facility] Urine (Urine, 1st catch) Collection / Unknown 10/02/2023 3:25 PM CDT 10/02/2023 3:[address] [facility] - 10/03/2023 8:25 PM CDT Results should not be used for the evaluation of suspected sexual abuse or for other medico-legal indications. The only legally accepted results are from culture. Results cannot be used to assess therapeutic success or failure since nucleic acids may persist following antimicrobial therapy. us Fay De Paz MD MICROBIOLOGY - GENERAL ORDERABL ES Final Result [facility] CLIA # [id number] [id number] [place] [address] from Last 3 Months or Most Recently Relevant to Health Maintenance Insurance [facility] [id number] [employer] Care Teams Gas Leak Tester Relationship Specialty Start Date End Date Glenys Rosales DO [address] [place] [phone] PCP - General Family Practice 11/22/23
[2025-03-31] MEDS: HYDROcodone-acetaminophen 5-325 mg Tablet 1 TAB PO (13:52)
--- NOTE | 2025-03-31 13:53 | ED_ITS ---
HPI - Extremity Problem General: Chief complaint: Extremity Injury, Upper Stated complaint: left shoulder pain Time Seen by Provider: 03/31/25 13:44 Source: patient Mode of arrival: ambulatory Limitations: no limitations History of Present Illness: Patient is a 24-year-old female who presents the emergency department complaining of continued left shoulder pain. Patient was seen here in the emergency department last Monday after she was at work in a patient had fell on her, diagnosed with shoulder sprain at that time and was treated with muscle relaxers and Toradol. States that the muscle laxer's have not been helping, and now she has developed tingling going down her arm. She has followed up with primary care, but not orthopedics. Has range of motion that is intact but states that she has lost feeling to the dorsum of her hand. No coolness or swelling to the left upper extremity. No paralysis. No further injury since the initial incident. Vitals are stable at this time, patient nontoxic- appearing. MD Complaint: joint pain and other (Numbness in left hand/LUE) Onset (ago): day(s) (6) Pain Consistency: constant Location: left and upper extremity Associated symptoms: Deny chest pain, fever(s) or rash Related Data Previous Rx's ?Medication ?Instructions ?Recorded ondansetron 8 mg disintegrating 8 mg PO Q8H PRN nausea and 03/02/25 tablet vomiting 5 days #15 tabs promethazine-DM 6.25 mg-15 mg/5 mL 5 ml PO Q4H cough # 118 mL 03/09/25 oral syrup celecoxib 100 mg capsule (Celebrex) 100 mg PO BID #14 caps 03/26/25 cyclobenzaprine 10 mg tablet 10 mg PO TID PRN muscle s pasm #15 03/26/25 tabs Allergies Allergy/AdvReac Type Severity Reaction Status Date / Time No Known Allergies Allergy Verified 03/17/25 13:57 Review of Systems General: Reports: 10 or more systems reviewed and unremarkable except in HPI and below Const: Denies: fever(s) or chills Card: Denies: chest pain Resp: Denies: dyspnea or productive cough GI: Denies: abdominal pain, nausea, vomiting or diarrhea : Denies: flank pain Musc: Reports: joint pain (left shoulder); Denies: neck pain, back pain, extremity pain, extremity swelling, joint swelling, joint redness, joint warmth, limited range of motion or muscle weakness Skin/Breast: Denies: rash Neuro: Reports: numbness in extremities (LUE, left hand); Denies: headache(s) or weakness in extremities PFSH ED PFSH: Medical History Incompetent cervix No pertinent past medical history Neghx: htn, dm, thyroid, dvt/pe No pertinent family history Rib pain on left side Surgical History Hx of section No pertinent past surgical history Family History Denies family history of Colon cancer Ovarian cancer Prostate cancer Diabetes Heart disease Breast cancer Hypertension Thyroid disease Stroke Social History Smoking and tobacco/nicotine status: never used tobacco/nicotine Second hand smoke exposure: No Alcohol intake: never Substance/Drug Use: never Physical Exam Const: COMMON NORMALS: no acute distress, patient oriented x3, no limitations, healthy appearing, alert and well nourished HENMT: COMMON NORMALS: normocephalic and atraumatic HEAD & SCALP: normocephalic and atraumatic Neck/C-Spine: COMMON NORMALS: full ROM, supple and no meningeal signs Resp: COMMON NORMALS: normal respiratory effort, No use of accessory muscles and clear to auscultation bilaterally AUSCULTATION: clear to auscultation bilaterally Cardio: COMMON NORMALS: regular rate and regular rhythm RATE: regular rate RHYTHM: regular rhythm Extremity: COMMON NORMALS: normal to inspection, full ROM, capillary refill normal, no joint enlargement and no clubbing, cyanosis or edema NARRATIVE EXTREMITY EXAM: No reproducible tenderness to palpation of the left shoulder joint with no obvious deformity. Range of motion is intact of the left shoulder though antalgic with abduction. There is no coolness, mottling, or swelling of the left upper extremity. Distal radial pulses palpable. Neuro: COMMON NORMALS: patient oriented x3, moves all extremities and no focal motor deficits SENSORIUM/ORIENTATION: Yes alert MENINGEAL SIGNS: Yes no meningeal signs OTHER: Patient is endorsing diminished sensation to light touch to dorsum of left hand, along radial nerve distribution. However there is no wrist drop as she has intact strength with wrist extension on the left. No diminished sensation to the ulnar or medial distribution. Good strength elsewhere. Skin: COMMON NORMALS: no rashes or lesions noted GENERAL SKIN EXAM: no rashes or lesions noted Course Vital Signs: Vital signs: Vital Signs Temperature 98.2 F 03/31/25 12:57 Pulse Rate 80 03/31/25 12:57 Respiratory Rate 17 03/31/25 12:57 Blood Pressure 113/72 03/31/25 12:57 Pulse Oximetry 97 03/31/25 12:57 Oxygen Delivery Me thod Room Air 03/31/25 12:57 MDM - Extremity (Nontraumatic) Medical Decision Making Patient presenting for evaluation of continued symptoms of left upper extremity, seen here previously in the emergency department last week due to the initial injury where patient had fell on her at work. Diagnosed with rotator cuff injury at that time after shoulder x-ray, treated at home with muscle relaxers and Toradol. Notes that her symptoms have persisted but today has had some numbness to her left arm, primarily to the dorsum of the left hand. There is subjective diminished sensations to left hand though strength remains intact as she has good wrist extension on the left. She has not followed up with orthopedics, her x-ray today is negative again, and she will be referred so that she can be evaluated possibly for MRI and or establishment of physical therapy. She agrees with this plan, there is no emergent process going on at this time that requires urgent consultation, and ultimately discharged home. There are certainly no signs of DVT or arterial occlusion requiring ultrasound. Lab Data Radiology Impressions Shoulder X-Ray 03/31/25 12:50 IMPRESSION: No acute findings. All radiology interpretation(s) finalized by discharge Discharge Plan Discharge Patient Disposition: Home Clinical Impression: Injury of left rotator cuff Qualifiers: Encounter type: subsequent encounter Qualified Code(s): S46.002D - Unspecified injury of muscle(s) and tendon(s) of the rotator cuff of left shoulder, subsequent encounter Condition: Stable Prescriptions: No Action ondansetron 8 mg tablet,disintegrating 8 mg PO Q8H PRN (Reason: nausea and vomiting) 5 Days Qty: 15 0RF promethazine-DM 6.25-15 mg/5 mL syrup 5 ml PO Q4H Qty: 118 0RF Rx Instructions: Do not exceed more than 30ml/24hour period (6 doses) cyclobenzaprine 10 mg tablet 10 mg PO TID PRN (Reason: muscle spasm) Qty: 15 0RF celecoxib [Celebrex] 100 mg capsule 100 mg PO BID Qty: 14 0RF Discharge Orders: Discharge ED (Routine); Ordered 03/31/25 Ordered By: Ariel Mendez Referrals: Glenys Rosales DO [Primary Care Provider, BINDING END STITCHER] Patient Instructions: Patient Portal & Debbie Instructions Activity Restrictions/Additional Instructions: Please follow-up with orthopedics as we discussed. You may return to work and encourage range of motion of your left shoulder. Please alternate Motrin and Tylenol for pain, return with any coolness, paralysis, swelling or redness of the left upper extremity. Your x-ray today again did not demonstrate any acute emergent abnormalities. Print Language: Nigerien Coding Level of Care Code ED Sales Program Manager for Wanda Lawton
== END 2025-03-31 14:18 | disposition home or self-care (01) ==
PROVIDERS: Emergency Provider Physician Assistant; PCP Family Medicine
DX: S46.002D Unspecified injury of muscle(s) and tendon(s) of the rotator cuff of left shoulder, subsequent encounter (principal); W50.0XXA Accidental hit or strike by another person, initial encounter
CPT/HCPCS: 73030; 99283; J9999

== ENCOUNTER → 2025-04-08 13:51 | Outpatient (BNVA) | payer OTHER, SELFPAY | PROVIDERS: PCP Family Medicine; Visit Provider Orthopaedic Surgery | DX: M25.512 Pain in left shoulder (principal) | CPT/HCPCS: 73030 ==

== ENCOUNTER 2025-04-08 14:29 | Outpatient (CLI) | payer OTHER, SELFPAY | END 2025-04-08 14:30 | disposition home or self-care (01) | LOC: SPT 14:29 | PROVIDERS: PCP Family Medicine; Visit Provider Orthopaedic Surgery | DX: Z46.89 Encounter for fitting and adjustment of other specified devices (principal); M25.512 Pain in left shoulder | CPT/HCPCS: A4565 ==